=== PATIENT | male | born 1945 | race Caucasian/White ===

== ENCOUNTER 2017-08-18 11:23 | Inpatient (IN) | payer OTHER, MEDICARE ==
[~2017-08-18] VITALS: Ht 177.8 cm; Wt 83.2 kg
[~2017-08-18 11:23] MED LIST: CEPH500 PO; OXYACE5T PO
[2017-08-18 11:39] LABS: BASOPHILS ABSOLUTE AUTO 0.03 K/mm3 (0.00-0.23); BASOPHILS PERCENT AUTO 0 % (0-2); EOSINOPHILS ABSOLUTE AUTO 0.09 K/mm3 (0.00-0.68); EOSINOPHILS PERCENT AUTO 1 % (0-6); Hematocrit 43.1 % (37.0-53.0); Hemoglobin 14.6 g/dL (13.5-17.5); IMMATURE GRAN ABSOLUTE AUTO 0.03 K/mm3 (0.00-0.10); IMMATURE GRAN PERCENT AUTO 0 % (0-1); LYMPHOCYTES ABSOLUTE AUTO 1.57 K/mm3 (0.84-5.20); LYMPHOCYTES PERCENT AUTO 16 % (21-46); MONOCYTES ABSOLUTE AUTO 0.78 K/mm3 (0.16-1.47); MONOCYTES PERCENT AUTO 8 % (4-13); Mean Corpuscular HGB 29.9 pg (26.0-34.0); Mean Corpuscular HGB Conc 33.9 g/dL (31.5-36.5); Mean Corpuscular Volume 88 fL (80-100); Mean Platelet Volume 9.5 fL (9.1-12.4); NEUTROPHILS ABSOLUTE AUTO 7.62 K/mm3 (1.96-9.15); NEUTROPHILS PERCENT AUTO 75 % (41-73); Platelet Count 320 K/mm3 (150-400); RDW Coefficient Variation 12.5 % (11.7-14.2); RDW Standard Deviation 40.6 fL (35.1-46.3); Red Blood Cell Count 4.89 M/mm3 (4.30-5.90); White Blood Cell Count 10.12 K/mm3 (4.00-11.30)
[2017-08-18 11:45] LABS: Calcium, Ionized (POC) 1.15 mmol/L (1.10-1.46); Chloride (POC) 96 mmol/L (98-108); Glucose (ISTAT POC) 168 mg/dL (70-99); Potassium (POC) 3.5 mmol/L (3.5-5.5); Sodium (POC) 142 mmol/L (135-148); Total CO2 (POC) 32 mmol/L (21-32)
[2017-08-18 12:07] LABS: Alanine Aminotransfer (ALT/SGP 24 U/L (12-78); Albumin, Blood 3.2 g/dL (3.4-5.0); Albumin/Globulin Ratio 0.9 (0.8-1.8); Alk Phos 55 U/L (50-136); Anion Gap 5 mmol/L (6-16); Aspartate Aminotrans (AST/SGOT 33 U/L (12-37); Bilirubin, Total 0.5 mg/dL (0.1-1.0); Blood Urea Nitrogen 11 mg/dL (8-24); CO2, Blood 30 mmol/L (21-32); Calcium, Blood 8.8 mg/dL (8.5-10.1); Chloride, Blood 105 mmol/L (98-108); Creatinine, Blood 0.85 mg/dL (0.60-1.20); Globulin, Blood 3.6 g/dL (2.2-4.0); Glomerular Filtration Rate >60 (60-); Glucose, Blood 157 mg/dL (70-99); Potassium, Blood 3.4 mmol/L (3.5-5.5); Sodium, Blood 140 mmol/L (136-145); Total Protein, Blood 6.8 g/dL (6.4-8.2)
[2017-08-18] MEDS ORDERED: ATOR40TA PO (15:31)
[2017-08-18] MEDS ORDERED: CYCL10 PO (15:32)
[2017-08-18] MEDS ORDERED: LIDO700A20 TOP (15:37)
[2017-08-18] MEDS ORDERED: Hair, Skin & N1 EACH PO (15:37)
[2017-08-19 04:25] LABS: BASOPHILS ABSOLUTE AUTO 0.04 K/mm3 (0.00-0.23); BASOPHILS PERCENT AUTO 0 % (0-2); EOSINOPHILS ABSOLUTE AUTO 0.06 K/mm3 (0.00-0.68); EOSINOPHILS PERCENT AUTO 0 % (0-6); Hematocrit 41.6 % (37.0-53.0); Hemoglobin 14.3 g/dL (13.5-17.5); IMMATURE GRAN ABSOLUTE AUTO 0.06 K/mm3 (0.00-0.10); IMMATURE GRAN PERCENT AUTO 0 % (0-1); LYMPHOCYTES ABSOLUTE AUTO 1.51 K/mm3 (0.84-5.20); LYMPHOCYTES PERCENT AUTO 11 % (21-46); MONOCYTES ABSOLUTE AUTO 1.29 K/mm3 (0.16-1.47); MONOCYTES PERCENT AUTO 9 % (4-13); Mean Corpuscular HGB Conc 34.4 g/dL (31.5-36.5); Mean Corpuscular Volume 87 fL (80-100); Mean Platelet Volume 9.8 fL (9.1-12.4); NEUTROPHILS ABSOLUTE AUTO 11.08 K/mm3 (1.96-9.15); NEUTROPHILS PERCENT AUTO 79 % (41-73); Platelet Count 307 K/mm3 (150-400); RDW Coefficient Variation 12.7 % (11.7-14.2); RDW Standard Deviation 40.2 fL (35.1-46.3); Red Blood Cell Count 4.77 M/mm3 (4.30-5.90); White Blood Cell Count 14.04 K/mm3 (4.00-11.30)
[2017-08-19 04:50] LABS: Anion Gap 5 mmol/L (6-16); Blood Urea Nitrogen 10 mg/dL (8-24); Bun/Creatinine Ratio 13.3 (12.0-20.0); CHOL/HDL RATIO 4.5; CO2, Blood 29 mmol/L (21-32); Calcium, Blood 8.4 mg/dL (8.5-10.1); Chloride, Blood 108 mmol/L (98-108); Cholesterol 189 mg/dL (50-200); Creatinine, Blood 0.75 mg/dL (0.60-1.20); Glomerular Filtration Rate >60 (60-); Glucose, Blood 106 mg/dL (70-99); HDL Cholesterol 42 mg/dL (>39); Low Density Lipoprotein Chol 124 mg/dL (0-110); Potassium, Blood 3.5 mmol/L (3.5-5.5); Sodium, Blood 142 mmol/L (136-145); Triglycerides 115 mg/dL (30-160); Very Low Density Lipoprot Chol 23 mg/dL (6-32)
[2017-08-20 09:26] LABS: Anion Gap 8 mmol/L (6-16); Blood Urea Nitrogen 13 mg/dL (8-24); CO2, Blood 28 mmol/L (21-32); Calcium, Blood 8.9 mg/dL (8.5-10.1); Chloride, Blood 107 mmol/L (98-108); Creatinine, Blood 0.82 mg/dL (0.60-1.20); Glomerular Filtration Rate >60 (60-); Glucose, Blood 102 mg/dL (70-99); Magnesium, Blood 2.4 mg/dL (1.6-2.4); Potassium, Blood 3.9 mmol/L (3.5-5.5); Sodium, Blood 143 mmol/L (136-145)
[2017-08-20] MEDS ORDERED: LISI20 PO ×2 (13:13→13:55)
[2017-08-20] MEDS ORDERED: CLOP75 PO (14:15)
[2017-08-20] MEDS ORDERED: METO25 PO (14:16)
== END 2017-08-20 14:50 | disposition home or self-care (01) | DRG 247 ==
LOC: ER 11:23 → ICUW 11:49
PROVIDERS: Emergency Medicine; Internal Medicine; Internal Medicine Interventional Cardiology; Physician Assistant
PROC: 4A023N7 Measurement of Cardiac Sampling and Pressure, Left Heart, Percutaneous Approach (ICD-10-PCS; principal; 2017-08-18)
PROC: 027135Z Dilation of Coronary Artery, Two Arteries with Two Drug-eluting Intraluminal Devices, Percutaneous Approach (ICD-10-PCS; 2017-08-18)
PROC: B211YZZ Fluoroscopy of Multiple Coronary Arteries using Other Contrast (ICD-10-PCS; 2017-08-18)
DX: I21.09 ST elevation (STEMI) myocardial infarction involving other coronary artery of anterior wall (principal); I25.10 Atherosclerotic heart disease of native coronary artery without angina pectoris; I10 Essential (primary) hypertension; E78.5 Hyperlipidemia, unspecified; I49.9 Cardiac arrhythmia, unspecified; R00.1 Bradycardia, unspecified
CPT/HCPCS: 36415; 80047; 80048; 80053; 80061; 83036; 83735; 83880; 84484; 85014; 85025; 85347; 92978; 93005; 93010; 93306; 93454; 99152; 99153; C1725; C1753; C1769; C1874; C1894; C9600; C9606; J0461; J1644; J2060; J2250; J2270; J3010; J3246; J3475; J7030; Q9967

== ENCOUNTER 2024-07-28 15:34 | Inpatient (IN) | payer OTHER, MEDICARE ==
[~2024-07-28] VITALS: Ht 177.8 cm; Wt 82.0 kg
[~2024-07-28 15:34] MED LIST changes: +ATOR40TA PO; +Aspirin EC81 MG PO; +BISA5EC PO; +CARV3.125; +CARV3.125 PO; +CLOP75 PO; +CYCL10 PO; +DOCU100 PO; +Hair, Skin & N1 EACH PO; +Ketamine HCl 100 MG / ML 5ML Vial IV ONE; +LIDO700A20 TOP; +LISI20 PO; +METO25 PO; +Phenylephrine HCl 100 MCG/ML-NS 10MLSYR (1MG/10ML) IV ONE; +Rocuronium Bromide 10 MG/ML 5ML Injection IV ONE; +TAMS.4ER PO
[2024-07-28] MEDS ORDERED: METO50 PO (15:45)
[2024-07-28] MEDS ORDERED: AMIODARONE HCL100 M3 PO (15:45)
[2024-07-28] MEDS ORDERED: ELIQUIS2.5 MG PO (15:46)
[2024-07-28 16:00] LABS: BASOPHILS ABSOLUTE AUTO 0.05 K/mm3 (0.00-0.23); BASOPHILS PERCENT AUTO 1 % (0-2); EOSINOPHILS PERCENT AUTO 1 % (0-6); Hematocrit 44.8 % (37.0-53.0); IMMATURE GRAN ABSOLUTE AUTO 0.04 K/mm3 (0.00-0.10); IMMATURE GRAN PERCENT AUTO 0 % (0-1); LYMPHOCYTES ABSOLUTE AUTO 1.03 K/mm3 (0.84-5.20); LYMPHOCYTES PERCENT AUTO 11 % (21-46); MONOCYTES ABSOLUTE AUTO 1.01 K/mm3 (0.16-1.47); MONOCYTES PERCENT AUTO 10 % (4-13); Mean Corpuscular HGB 30.6 pg (26.0-34.0); Mean Corpuscular HGB Conc 33.5 g/dL (31.5-36.5); Mean Corpuscular Volume 91 fL (80-100); Mean Platelet Volume 9.4 fL (9.1-12.4); NEUTROPHILS PERCENT AUTO 77 % (41-73); Platelet Count 219 K/mm3 (150-400); RDW Coefficient Variation 12.9 % (11.7-14.2); RDW Standard Deviation 43.8 fL (35.1-46.3); White Blood Cell Count 9.73 K/mm3 (4.00-11.30)
[2024-07-28 16:22] LABS: Albumin, Blood 3.6 g/dL (3.4-5.0); Bilirubin, Total 0.9 mg/dL (0.1-1.0); Creatinine, Blood 0.73 mg/dL (0.60-1.20); Globulin, Blood 3.7 g/dL (2.2-4.0); Potassium, Blood 3.8 mmol/L (3.5-5.5); Total Protein, Blood 7.3 g/dL (6.4-8.2)
[2024-07-28] MEDS ORDERED: MethylPREDNISolone Sod Succ 125 MG Vial IV ONE (16:45)
[2024-07-28] MEDS ORDERED: Albuterol 2.5 MG/3 ML VIAL INH SCH (16:45)
[2024-07-28] MEDS ORDERED: Ipratropium/Albuterol SulF 2.5-0.5MG/3 ML Amp INH ONE (16:50)
[2024-07-28] MEDS ORDERED: Metoprolol Tartrate 1 MG/ML 5 ML VIAL IV ONE (16:55)
[2024-07-28 18:18] LABS: Influenza A, PCR NEGATIVE (NEGATIVE); Influenza B, PCR NEGATIVE (NEGATIVE); SARS-Cov-2 (COVID-19) PCR, MMC NEGATIVE (NEGATIVE)
[2024-07-28 19:09] LABS: Resp Syncytial Virus, PCR POSITIVE (NEGATIVE)
[2024-07-28] MEDS ORDERED: Albuterol 2.5 MG/3 ML VIAL INH PRN (20:40)
[2024-07-28] MEDS ORDERED: Ondansetron HCl 2 MG / ML 2ML Vial IV PRN (20:40)
[2024-07-28] MEDS ORDERED: Ipratropium/Albuterol SulF 2.5-0.5MG/3 ML Amp INH SCH (20:45)
[2024-07-28] MEDS ORDERED: Amiodarone HCl 200 MG Tab PO SCH (21:00)
[2024-07-28] MEDS ORDERED: Atorvastatin 40 MG Tab PO SCH (21:00)
[2024-07-28] MEDS ORDERED: Metoprolol Tartrate 50 MG Tab PO SCH (21:00)
[2024-07-28] MEDS ORDERED: Apixaban 5 MG Tab PO SCH (21:00)
[2024-07-28] MEDS ORDERED: Furosemide 10 MG/ML 4ML Vial IV ONE (21:00)
[2024-07-28] MEDS ORDERED: Azithromycin 500 MG in NS 250 ML IV SCH (21:36)
[2024-07-28 22:12] LABS: Base Excess Venous 8.8 mmol/L; PCO2 Venous 76.7 mmHg (38-42); pH Blood Venous 7.28 (7.34-7.37)
[2024-07-28] MEDS ORDERED: LORazepam 2 MG/ML 1ML Injection IV PRN (23:05)
[2024-07-28 23:49] VITALS: BP 107/76
[2024-07-29] VITALS (87 sets, daily range): BP systolic 57–157; BP diastolic 40–108
[2024-07-29] MEDS ORDERED: MethylPREDNISolone Sod Succ 125 MG Vial IV SCH
[2024-07-29 04:37] LABS: Hematocrit 48.5 % (37.0-53.0); Hemoglobin 16.2 g/dL (13.5-17.5); Mean Corpuscular HGB Conc 33.4 g/dL (31.5-36.5); Mean Corpuscular Volume 93 fL (80-100); Mean Platelet Volume 9.3 fL (9.1-12.4); Platelet Count 242 K/mm3 (150-400); RDW Standard Deviation 44.3 fL (35.1-46.3); Red Blood Cell Count 5.22 M/mm3 (4.30-5.90)
[2024-07-29 04:43] LABS: Base Excess Venous 6.9 mmol/L; Bicarbonate Venous 26.8 mmol/L (24.0-30.0); PCO2 Venous 85.3 mmHg (38-42)
[2024-07-29 04:44] LABS: pH Blood Venous 7.22 (7.34-7.37)
--- NOTE | 2024-07-29 05:08 | NUR ---
Pt became hypoxic sats down to 50s pt took off bipap and attempted to urinate, he became lethargic and confused, md called, md came to room, VBG worse not improving from statt of admit, even though pt was on bipap, md transfer to icu for precedex and closer monitoring
[2024-07-29 05:10] LABS: Bun/Creatinine Ratio 17.8 (12.0-20.0); Calcium, Blood 9.2 mg/dL (8.5-10.1); Creatinine, Blood 0.9 mg/dL (0.60-1.20); Magnesium, Blood 2.2 mg/dL (1.6-2.4); Potassium, Blood 4.3 mmol/L (3.5-5.5); Thyroid Stimulating Hormone 0.264 uIU/mL (0.360-4.800)
--- NOTE | 2024-07-29 05:34 | NUR ---
0518: PT ARRIVED TO ICU BY HOSPITAL BED FROM PCU. REPORT WAS RECEIVED PRIOR FROM NOREEN BOOKER. BIPAP IN PLACE 16/8 FIO2 35%. PT CALM AND COOPERATIVE, AOX2-3. PT AWARE TO SELF, PLACE, CURRENT CONDITION, UNAWARE OF DATE. PT LEAVING BIPAP MASK ON AT THIS TIME. VITAL SIGN MONITORING IN PLACE. PT IVSL AT THIS TIME. PT IN AFIB RATE 90-110S, NO ABNORMAL HEART SOUNDS LUNG CRACKLES IN B/L BASE, DIMINISHED IN UPPER LOBES. NO PERIPHERAL EDEMA NOTED. SKIN INTACT. DISTAL CMS INTACT, CAP REFILL <3SEC STRONG PULSE PRESENT IN ALL EXTREMITIES. PT ABLE TO MAEW. NO DIEGO OR PUREWICK IN PLACE AT THIS TIME.
[2024-07-29 07:53] LABS: PO2 Arterial 80.9 mmHg (80-100)
[2024-07-29 07:54] LABS: pH Blood Arterial 7.23 (7.35-7.45)
[2024-07-29 07:55] LABS: PCO2 Arterial 86.9 mmHg (35-45)
--- NOTE | 2024-07-29 08:30 | NUR ---
AM NOTE PT RESTING IN BED ON BIPAP AT 16/8 35%; MASKED CHANGES OUT, SPO2 >90%, RESP RATE 20'S, LS DIMINISHED T/O. ALERT, ORIENTED X4; CALM AND COOPERATIVE WITH CARE AND BIPAP. PT DENIES PAIN, CHEST PAIN/PRESSURE, SOB, NAUSEA, DIZZINESS AND NUMB/TINGLING. TELE AFIB 90-100'S, BP STABLE. ABD SOFT, NONTENDER, +BT. TRACE EDEMA NOTED TO BLE. CAP REFILL WNL. OTHER VSS. CALL LIGHT WITHIN REACH.
[2024-07-29 08:43] LABS: PCO2 Venous 80.4 mmHg (38-42)
[2024-07-29 08:44] LABS: Base Excess Venous 8.9 mmol/L; Bicarbonate Venous 28.9 mmol/L (24.0-30.0)
[2024-07-29 08:45] LABS: pH Blood Venous 7.26 (7.34-7.37)
[2024-07-29] MEDS ORDERED: Furosemide 40 MG Tab PO SCH (09:00)
[2024-07-29] MEDS ORDERED: Multivitamins/Minerals TAB PO SCH (09:00)
[2024-07-29] MEDS ORDERED: Aspirin 81 MG TabEC PO SCH (09:00)
[2024-07-29] MEDS ORDERED: Lisinopril 20 MG Tab PO SCH (09:00)
[2024-07-29] MEDS ORDERED: Tamsulosin HCl 0.4 MG Cap PO SCH (09:00)
--- NOTE | 2024-07-29 10:32 | NUR ---
ATTEMPTED TO TAKE OFF BIPAP FOR MEDICATED THIS AM, ON 6L O2 VIA NC, SPO2 >94%; RESP RATE INCREASED TO 30'S, INCREASE WORK OF BREATHING NOTED. DUE TO RESP STATUS UNABLE TO GIVE ALL OF MEDICATIONS THIS AM, COMPLETED ORAL CARE, AND BACK ON BIPAP. SHORTLY AFTER PT STARTED PULL OFF BIPAP, REPEATEDLY, MEDICATED PER EMAR. CALL LIGHT WITHIN REACH.
--- NOTE | 2024-07-29 18:00 | NUR ---
SHIFT SUMMARY PT ON BIPAP 16/8 35%FIO2 FOR MAJORITY OF SHIFT. NOT TOLERATING BREAKS FROM BIPAP FOR LONG, THIS AFTERNOON, TOOK OFF AND PLACED 6L O2, PT BLECHING AND REPORTING NAUSEA, MEDICATED PER EMAR, RT ATTEMPTED TO DECREASE PRESSURE BUT UNABLE TO PULL ADEQUATE TIDAL VOLUMES. ATTEMPTED SEVERAL TIMES TO TAKE OFF BIPAP, COMPLETED ORAL CARE AND PROVIDED SIPS OF WATER. MINIMLA INTAKE DURING SHIFT, MINIMAL OUT PUT NOTED, BLADDER SCAN AT 216CC; DISCUSSED WITH MD, NEW ORDERS TO D/C LASIX. PT REPOSITIONED SELF FOR MAJORITY OF SHIFT. OTHER VSS. CALL LIGHT WITHIN REACH.
[2024-07-29 21:21] LABS: Base Excess Venous 8.8 mmol/L; Bicarbonate Venous 27.4 mmol/L (24.0-30.0); PCO2 Venous > 105 mmHg (38-42)
[2024-07-29 21:22] LABS: pH Blood Venous 7.16 (7.34-7.37)
[2024-07-29] MEDS ORDERED: dexmedeTOMIDine 100 ML IV SCH (21:35)
--- NOTE | 2024-07-29 21:38 | NUR ---
UPDATE ASSUMED CARE OF PT AT 1900, PT AWAKE, ALERT AND ORIENTED X4, FOLLOWS COMMANDS, ABLE TO MAKE NEEDS KNOWN, AFIB RYHYTHM 100s, BP STABLE MAP>65, BIPAP OFF PER PT REQUEST WITH 13 LPM NC PLACED TO KEEP SPO2>90%, PT GIVEN SCHEDULED MEDS PO AND SWALLOWED WITHOUT DIFFICULTY, DRANK 100 ML LEMON/ASSINIBOINE AND [place] TRI[place]ES SODA, NOTED SOB WITH EXERTION AND TALKING, REQUESTING TO GET OUT OF BED TO URINATE BUT FEELS REALLY WEAK, MALE PUREWICK PLACED AND PT VOIDED 200 ML YELLOW URINE WITHOUT DIFFCULTY, CIARA LUNGS SOUNDS DIMINISHED THOUGHOUT, NO EDEMA NOTED, +RADIAL AND PEDAL PULSES, PT REPOSITIONED FOR COMFORT 2099 PT REMAINS ON HFNC, YELLING OUT FOR HELP AND STATING HE CANT BREATHE AND NEEDS TO VOMIT, MEDICATED WITH ZOFRAN IVP PER EMAR AND HOB RAISED 2119 DR RIVER AT BEDSIDE WITH RT, PT RESTLESS CANT BREATHE OR GET COMFORTABLE, CBG 227, PT DIAPHORETIC, MEDICATED WITH ATIVAN 1 MG, VBG DONE AND PT PLACED BACK ON BIPAP AT THIS TIME 2149 PT SPO2 79-80s WITH NOTED SHALLOW RESPIRATIONS, NOTIFIED CHARGE NURSE AND MD WITH MD ON WAY TO ROOM, BIPAP FIO2 AT 100% RT IN ROOM
[2024-07-29] MEDS ORDERED: Lactated Ringer's 1,000 ML IV ONE ×2 (22:04→22:05)
[2024-07-29 22:51] LABS: Base Excess Venous 1.1 mmol/L; Bicarbonate Venous 23.7 mmol/L (24.0-30.0); PCO2 Venous 64.2 mmHg (38-42); pH Blood Venous 7.25 (7.34-7.37)
[2024-07-29] MEDS ORDERED: propofoL 100 ML IV SCH (23:10)
[2024-07-30] VITALS (68 sets, daily range): BP systolic 58–149; BP diastolic 37–124
--- NOTE | 2024-07-30 01:22 | NUR ---
UPDATE 2204 DR CYR IN ROOM AT BEDSIDE, VBG RESULTS GIVEN TO MD WITH PT RESP SHALLOW, CIARA LUNGS SOUNDS VERY DIMINISHED SPO2 77% -88% ON AIRVO FIO2 100%, NOTED AGONAL BREATHING, DECISION MADE TO INTUBATED PT, SPOSE NOTIFIED BY CHARGE NURSE WITH CONSENT RECEIVED FOR INTUBATION AND CENTRAL LINE 2208 SBP 60s WITH MAP<50, 50 MCG NEOSYNEPHRINE IVP GIVEN , PT MEDICATED WITH 80 MG KETAMINE IVP AT THIS TIME PRIOR TO INTUBATION 2209 50 MG ROCURONIUM IVP GIVEN PRIOR TO INTUBATION 2210 PT INTUBATED BY MD, 8.0 ETT SECURED AT 26 CM WITH COMMERCIAL TUBE GUARDADO AND CONNECTED TO VENTILATOR FIO2 50% AC/PC PEEP5 RATE 22, CXR ORDERED 2212 BP MAP <50, MEDICATED WITH 50 MCG NEOSYNEPHRINE IVP PER MD 2216 BP MAP <60 MEDICATED WITH 50 MCG NEOSYNEPHRINE IVP PER MD WITH NEW ORDER RECIEVED FOR LEVOPHED GTT AND WAITING TO RECEIVE FROM PHARMACY 2229 OG PLACED , PLACEMENT VERIFIED BY AUSC AND ASPIRATION, SECURED WITH TAPE TO ETT AND CONNECTED TO LIS 2230 LEVOPHED GTT STARTED AT THIS TIME PER EMAR 2234 DIEGO CATH PLACED AT THIS TIME WITH STERILE TECHNIQUE, 16 FR 10 CC BULB PATENT AND DRAINING CLEAR YELLOW URINE TO GRAVITY, SECURED WITH STAT LOCK TO RIGHT THIGH 230 RIGHT IJ CENTRAL LINE PLACED BY MD AT THIS TIME 230 CHEST XRAY DONE AT THIS TIME FOR ETT,OG AND CENTRAL LINE PLACEMENT VERIFICATION. DR CYR AT BEDSIDE TO VIEW XRAY WITH OK TO USE CENTRAL LINE GIVEN AND ETT AND OG IN PLACE PER MD 2325 PROPOFOL GTT STARTED AT THIS TIME PER EMAR
[2024-07-30 03:50] LABS: Base Excess Venous 9.1 mmol/L; Bicarbonate Venous 30.8 mmol/L (24.0-30.0); PCO2 Venous 56.3 mmHg (38-42); pH Blood Venous 7.39 (7.34-7.37)
[2024-07-30 03:58] LABS: BASOPHILS ABSOLUTE AUTO 0.02 K/mm3 (0.00-0.23); BASOPHILS PERCENT AUTO 0 % (0-2); EOSINOPHILS PERCENT AUTO 0 % (0-6); Hematocrit 42.8 % (37.0-53.0); Hemoglobin 14.3 g/dL (13.5-17.5); IMMATURE GRAN ABSOLUTE AUTO 0.15 K/mm3 (0.00-0.10); IMMATURE GRAN PERCENT AUTO 1 % (0-1); LYMPHOCYTES ABSOLUTE AUTO 0.77 K/mm3 (0.84-5.20); LYMPHOCYTES PERCENT AUTO 4 % (21-46); MONOCYTES PERCENT AUTO 5 % (4-13); Mean Corpuscular HGB Conc 33.4 g/dL (31.5-36.5); Mean Corpuscular Volume 93 fL (80-100); Mean Platelet Volume 9.5 fL (9.1-12.4); NEUTROPHILS ABSOLUTE AUTO 19.21 K/mm3 (1.96-9.15); NEUTROPHILS PERCENT AUTO 91 % (41-73); Platelet Count 253 K/mm3 (150-400); RDW Coefficient Variation 13.3 % (11.7-14.2); RDW Standard Deviation 45.1 fL (35.1-46.3); Red Blood Cell Count 4.61 M/mm3 (4.30-5.90); White Blood Cell Count 21.15 K/mm3 (4.00-11.30)
[2024-07-30 04:18] LABS: Albumin, Blood 3.4 g/dL (3.4-5.0); Bilirubin, Total 0.6 mg/dL (0.1-1.0); Bun/Creatinine Ratio 30.3 (12.0-20.0); Calcium, Blood 8.9 mg/dL (8.5-10.1); Creatinine, Blood 1.42 mg/dL (0.60-1.20); Globulin, Blood 3.4 g/dL (2.2-4.0); Total Protein, Blood 6.8 g/dL (6.4-8.2)
--- NOTE | 2024-07-30 06:24 | NUR ---
SHIFT SUMMARY PT REMAINS INTUBATED AND SEDATED ON VENT, FIO2 40% WITH SPO2 >90%, RASS -2 ON PROPOFOL GTT ,AFIB RHYTHM 90-130s, BP MAP >65 ON LEVOPHED GTT,OG PATENT TO LOW INTERMITTENT SUCTIONS CIARA WRIST RESTRAINTS ON, PT TURNED AND REPOSITIONED EVERY 2 HOURS, ORAL CARE DONE EVERY 4 HOURS, DIEGO PATENT AND DRAINING TO GRAVITY MINIMAL OUTPUT OF 20-30 ML EVERY 2 HOURS, HOB UP 35 DEGREES, SIDE RAILS UP X2
[2024-07-30] MEDS ORDERED: Bisacodyl 10 MG Supp PR PRN (11:15)
[2024-07-30] MEDS ORDERED: Docusate Sodium Liquid 100 MG UDC PT PRN (11:15)
[2024-07-30] MEDS ORDERED: Ipratropium/Albuterol SulF 2.5-0.5MG/3 ML Amp INH SCH (11:40)
[2024-07-30] MEDS ORDERED: Pantoprazole Sodium 40 MG Injection IV SCH (12:00)
[2024-07-30] MEDS ORDERED: FentaNYL Citrate 50 MCG/ML 2 ML Injection IV PRN (15:00)
[2024-07-30] MEDS ORDERED: Hydrogen Peroxide 1.5 % Solution MT SCH (16:00)
--- NOTE | 2024-07-30 18:34 | NUR ---
PT IS SEDATED AND ABLE TO RELAX BUT TENSES AND IS MORE ORIENTED WITH REPOSITIONING/STIMUL. PT OPENS EYES TO VERBAL STIMULI AND CAN NOD HIS HEAD YES OR NO WHEN AROUSED AND ASKED QUESTIONS. PT IS ON VENTILATOR AND IS TOLERATING WELL. SETTINGS CHANGED AT [address] RIVER. PROPOFOL REMAINS STEADY AT 30MCG/KG. DISCONTINUED LEVOPHED AT 1500, MAP>65. DURING 0800 ASSESSMENT, PT WAS TACHYCARDIC AND WENT INTO AFIB RVR. ADMINISTERED AMIODARONE TAB EARLY WITH CALL TO DR. ROSE. MED ADJUSTMENTS PER DR. ROSE. FURTHER ORDERS FROM DR. RIVER. CONTINUE PLAN OF CARE. PT IS ON VENTILATOR. LUNGS SOUNDS ARE DIMINISHED. CARDIAC: PT
--- NOTE | 2024-07-30 18:59 | NUR ---
SHAZIA'S CARE PERFORMED BY MELISSA STUDENT NURSE AND MYSELF THROUGHOUT THE SHIFT. I AGREE WITH HER ASSESSMENT AND NOTES.
[2024-07-30] MEDS ORDERED: Cetylpyridinium Chloride 1 EA MISC MT SCH (20:00)
[2024-07-30] MEDS ORDERED: Azithromycin 500 MG in NS 250 ML IV ONE (20:00)
[2024-07-30] MEDS ORDERED: MethylPREDNISolone Sod Succ 125 MG Vial IV SCH (21:00)
[2024-07-30] MEDS ORDERED: Amiodarone HCl 200 MG Tab PT SCH (21:00)
[2024-07-30] MEDS ORDERED: Apixaban 5 MG Tab PO SCH (21:00)
[2024-07-31] VITALS (39 sets, daily range): BP systolic 82–132; BP diastolic 49–117
[2024-07-31] MEDS ORDERED: Midazolam HCl 1MG / ML 2ML Vial IV PRN (02:15)
[2024-07-31] MEDS ORDERED: dexmedeTOMIDine 100 ML IV SCH (02:15)
--- NOTE | 2024-07-31 03:02 | NUR ---
PT UPDATE: PT CONTINUES WITH AFIB RVR HR 150-170'S, RESTLESS IN BED. PROPOFOL @ 40 MCG AND PRN PUSHES OF ATIVAN GIVEN WITH MINIMAL EFFECT. DR CYR CALLED REGARDING AFIB RVR AND ORDERS RECIEVED TO START PT ON PRECEDEX GTT AND VERSED PRN. PT STARTED ON PRECEDEX GTT @ 0.2 MCGKG/HR.
[2024-07-31 04:23] LABS: BASOPHILS ABSOLUTE AUTO 0.03 K/mm3 (0.00-0.23); BASOPHILS PERCENT AUTO 0 % (0-2); EOSINOPHILS PERCENT AUTO 0 % (0-6); Hematocrit 39.8 % (37.0-53.0); Hemoglobin 13.5 g/dL (13.5-17.5); IMMATURE GRAN ABSOLUTE AUTO 0.18 K/mm3 (0.00-0.10); IMMATURE GRAN PERCENT AUTO 1 % (0-1); LYMPHOCYTES ABSOLUTE AUTO 0.43 K/mm3 (0.84-5.20); LYMPHOCYTES PERCENT AUTO 2 % (21-46); MONOCYTES ABSOLUTE AUTO 0.88 K/mm3 (0.16-1.47); MONOCYTES PERCENT AUTO 3 % (4-13); Mean Corpuscular HGB 30.8 pg (26.0-34.0); Mean Corpuscular HGB Conc 33.9 g/dL (31.5-36.5); Mean Corpuscular Volume 91 fL (80-100); Mean Platelet Volume 9.7 fL (9.1-12.4); NEUTROPHILS ABSOLUTE AUTO 25.77 K/mm3 (1.96-9.15); NEUTROPHILS PERCENT AUTO 94 % (41-73); Platelet Count 231 K/mm3 (150-400); RDW Coefficient Variation 13.5 % (11.7-14.2); RDW Standard Deviation 45.2 fL (35.1-46.3); Red Blood Cell Count 4.39 M/mm3 (4.30-5.90); White Blood Cell Count 27.29 K/mm3 (4.00-11.30)
[2024-07-31 04:45] LABS: Bun/Creatinine Ratio 36.1 (12.0-20.0); Calcium, Blood 8.8 mg/dL (8.5-10.1); Creatinine, Blood 2.02 mg/dL (0.60-1.20); Magnesium, Blood 2.7 mg/dL (1.6-2.4); Phosphorus, Blood 2.8 mg/dL (2.5-4.9); Potassium, Blood 3.9 mmol/L (3.5-5.5)
--- NOTE | 2024-07-31 06:42 | NUR ---
SHIFT SUMMARY: NO ACUTE CHANGES SINCE PREVIOUS NOTE; VSS THROUGHOUT THE SHIFT. PT REMAINS INTUBATED AND SEDATED WITH VENT SETTINGS AC/PC: PI 20, PEEP 5, FIO2 30% AND RATE 18. PT SEDATED WITH PROPOFOL GTT @ 3O MCG/KG/HR AND PRECEDEX @ 0.2 MCG/KG/HR. ON LOW DOSE OF LEVO @ 2 MCG/MIN. PT AROUSES TO VERBAL STIMULI, WILL OPEN EYES AND SQUEEZE HANDS ON COMMAND. PT IN AFIB ON MONITOR WITH HR 110-140'S; AT ONE POINT DURING THE NIGHT PT TACHY UP TO 170'S, PROVIDER NOTIFIED AND ORDERS RECIEVED. OGT PATENT AND VHP @ 50 MLS/HR WITH A GOAL OF 60 MLS/HR. PT HAS DIEGO, APPROX. 500 MLS URINE OUTPUT THIS SHIFT. CBG ARE TRENDING UP, WILL NOTIFY PROVIDER. CHG BED BATH COMPLETE THIS SHIFT. PT'S AND DAUGHTER IN TO SEE PT AT START OF SHIFT, AND UPDATED ON PLAN OF CARE. WILL REPORT OFF TO ONCOMING RN.
[2024-07-31] MEDS ORDERED: Phenylephrine HCl in 0.9% NaCl 250 ML IV SCH (09:50)
[2024-07-31] MEDS ORDERED: Metoprolol Tartrate 25 MG Tab PO SCH (12:00)
--- NOTE | 2024-07-31 13:51 | NUR ---
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 SHE ASSESSED AND CONFIRMED THAT THE AREA IS INFECTED. SEE HER NOTES FOR FURTHER INFORMATION.
[2024-07-31] MEDS ORDERED: Amoxicillin 250 MG/5 ML UDC 5ML BTL PT SCH (14:27)
[2024-07-31 17:40] LABS: Source, Urine Foley catheter
[2024-07-31 17:55] LABS: Appearance, Urine Clear (Clear); Bilirubin, Urine Neg (Neg); Blood, Urine 4+ (Neg); Glucose Qualitative, Urine 4+ (Neg); Ketones, Urine Neg (Neg); Leukocyte Esterase, Urine Neg (Neg); Nitrite, Urine Neg (Neg); Protein, Urine 2+ (Neg); Specific Gravity, Urine 1.015 (1.003-1.022); Urobilinogen, Urine NORM (Normal)
[2024-07-31 18:02] LABS: Color, Urine Pale Yellow (P-Yellow); Hyaline Casts 0-2 /lpf (0-2)
[2024-07-31 18:03] LABS: Amorphous Light (0-Heavy); Bacteria Not Seen /hpf; Calcium Oxalate Crystals Rare /hpf; Squamous Epithelial Cells Not Seen /hpf (Few); White Blood Cells, Urine 0-2 /hpf (0-5)
--- NOTE | 2024-07-31 18:24 | NUR ---
NEURO: PT HAS BEEN SEDATED FOR THE DURATION OF SHIFT. PT HAS BEEN SEDATED WITH PROPOFOL AND PRECEDEX. PROPOFOL WAS 25 AND PRECEDEX AT 0.2 AT THE BEGINNING OF SHIFT, PROPOFOL WAS DECREASED TO TO 20 AND PRECEDEX INCREASED TO 0.4 AT 1200. PT IS SEDATED BUT AROUSABLE WITH REPOSITIONING AND VERBAL AND PAINFUL STIMULI. CAN NOD HIS HEAD YES OR NO AND OBEYS COMMANDS. CARDIAC: AT ONSET OF SHIFT PT WAS RECEIVING LEVOPHED @ 2. MAP >90, LEVOPHED WAS DC'D. HR SINUS TACH, 80-140S FOR MAJORITY OF SHIFT. DR. VALENCIA RX 12.5MG METOPROLOL PO Q6. RESP: PT VENTILATED AND SEDATED, TOLERATING VENTILATOR WELL, OCCASIONAL COUGH. MINIMAL SPUTUM. GI/: PT DID NOT HAVE A BM, BOWEL SOUNDS ARE ACTIVE. URINE OUTPUT IMPROVED GREATLY, OUTPUT OF 975. PT BLOOD SUGAR CONTINUES TO INCREASE, 1600 BLOOD GLUCOSE WAS 267. ADDRESSED AT ROUNDING, BUT NO INSULIN WAS RX AT THIS TIME. DR REYNA WENT TO SEE PT PER DR ROSE CONSULT. INTEG: PT WAS DIAPHORETIC AND WARM THIS MORNING BUT COOLED DOWN. DURING 1200 ORAL CARE, IDENTIFIED AN AREA OF CONCERN ON THE RIGHT UPPER HARD PALATE. NOTIFIED DERRICK [facility], SHE ASSESSED AND CONFIRMED INFECTION. DR. LAWSON RX AMOXICILLIN 500MG TID PT. PT TOLERATED ALL INTERVENTIONS WELL, PLAN OF CARE CONTINUES.
[2024-08-01] VITALS (36 sets, daily range): BP systolic 94–152; BP diastolic 54–126
[2024-08-01 03:16] LABS: Base Excess Venous 12.1 mmol/L; Bicarbonate Venous 33.6 mmol/L (24.0-30.0); PCO2 Venous 52.9 mmHg (38-42); pH Blood Venous 7.44 (7.34-7.37)
[2024-08-01 03:20] LABS: BASOPHILS ABSOLUTE AUTO 0.04 K/mm3 (0.00-0.23); BASOPHILS PERCENT AUTO 0 % (0-2); EOSINOPHILS PERCENT AUTO 0 % (0-6); Hemoglobin 14.8 g/dL (13.5-17.5); IMMATURE GRAN ABSOLUTE AUTO 0.24 K/mm3 (0.00-0.10); IMMATURE GRAN PERCENT AUTO 1 % (0-1); LYMPHOCYTES ABSOLUTE AUTO 0.49 K/mm3 (0.84-5.20); LYMPHOCYTES PERCENT AUTO 2 % (21-46); MONOCYTES ABSOLUTE AUTO 1.26 K/mm3 (0.16-1.47); MONOCYTES PERCENT AUTO 5 % (4-13); Mean Corpuscular HGB Conc 34.4 g/dL (31.5-36.5); Mean Corpuscular Volume 90 fL (80-100); Mean Platelet Volume 9.7 fL (9.1-12.4); NEUTROPHILS ABSOLUTE AUTO 22.35 K/mm3 (1.96-9.15); NEUTROPHILS PERCENT AUTO 92 % (41-73); Platelet Count 199 K/mm3 (150-400); RDW Coefficient Variation 13.2 % (11.7-14.2); RDW Standard Deviation 44.1 fL (35.1-46.3); Red Blood Cell Count 4.78 M/mm3 (4.30-5.90); White Blood Cell Count 24.38 K/mm3 (4.00-11.30)
[2024-08-01 03:39] LABS: Bun/Creatinine Ratio 45.5 (12.0-20.0); Calcium, Blood 8.7 mg/dL (8.5-10.1); Creatinine, Blood 1.32 mg/dL (0.60-1.20); Magnesium, Blood 2.9 mg/dL (1.6-2.4); Phosphorus, Blood 3.1 mg/dL (2.5-4.9); Potassium, Blood 4.4 mmol/L (3.5-5.5)
--- NOTE | 2024-08-01 07:36 | NUR ---
PT LYING IN BED VENTILATED AN SEDATED, RASS OF 0 TO +1. PT RASS OF -2 MOST OF NIGHT. SINCE 0500 PT HAS BECOME MORE ACTIVE/RESTLESS/AGITATED, BUT VITALS HAVE REMAINED STABLE, THOUGH AN INCREASE IN RR AND OCCASIONAL INCREASE IN TIDAL VOL HAS ACCOMPANIED THE LEVEL OF SEDATION. PT ON 25 OF PROPOFOL AND 0.4 OF PRECEDEX. PT WAS GIVEN ONE DOSE OF FENTANYL DURING MIDDLE OF SHIFT. HR REMAINED ELEVATED DURING SHIFT BUT DIDN'T CREEP ABOVE 120'S. BP STABLE ALL SHIFT. ACPC VENT SETTINGS OF 18/MIN, PI 20, 5.0 PEEP AND 30%FI02 PRODUCED >95% SATURATIONS. ONE CUFF LEAK EVENT DURING MIDDLE OF SHIFT. NO BM. 1 LITER OF YELLOW URINE OUTPUT THROUGH DIEGO. BEDSIDE REPORT GIVEN TO DAY RN AND DAY RN STUDENT.
[2024-08-01] MEDS ORDERED: Piperacillin/Tazobactam Sod 4.5 GM in NS 100 ML IV SCH (09:13)
--- NOTE | 2024-08-01 10:19 | NUR ---
PT UNDERWENT A SEDATION VACATION FROM . PT TOLERATED WELL, ABLE TO MOVE ALL EXTREMITIES ON DEMAND, NOD HIS HEAD YES OR NO, AND OPEN HIS EYES AND TRACK. DAUGHTER BY BEDSIDE. DR. VALENCIA AT BEDSIDE. CHANGED VENT SETTINGS TO SPONTANEOUS FOR APPROX 5 MINS. TOLERATED FAIR, RR INCREASED TO 40S. RETURNED TO A/C VENT SETTINGS. WILL CONTINUE TO MONITOR.
--- NOTE | 2024-08-01 13:08 | NUR ---
PALLIATIVE CARE NOTE: PT IS INTUBATED AND SEDATED. UNABLE TO HAVE MEANINGFUL CONVERSATION WITH PATIENT. CALLED [facility] AND SPOKE TO DIRECTOR. THEY WERE ABLE TO FAX HIS ADVANCE DIRECTIVE TO HOSPITAL. PT DOES NOT HAVE A POLST ON FILE. ADVANCE DIRECTIVE RECEIVED AND UPDATED PRIMARY RN AND DR. ROSE OF PT WISHES. CUCO IS NAMES PRIMARY DECISION MAKER. CALL PLACED TO CUCO AND SPOKE TO HER ON THE PHONE. CUCO INDICATED IN OUR CONVERSATION HER DID NOT WANT TO BE ON A VENTILATOR, HE WOULD NOT WANT MEDICATIONS TO EITHER TO TREAT HIM IF HE WAS TO GET TO THE THAT POINT OF NEEDING TO BE ON A VENTILATOR. DISCUSSED CODE STATUS WITH CUCO SINCE PT IS A FULL CODE. EDUCATED CUCO ON FULL CODE VS DNR STATUS. CUCO STATED SHE WANTS KATHERIN TO BE A DNR BECAUSE THAT IS WHAT HE WOULD WANT. INFORMED CUCO MORE DISCUSSION IS NEEDED WITH PROVIDER ABOUT PT ON THE VENTILATOR. CUCO AGREEABLE TO WAIT FOR MORE INFORMATION. SPOKE TO DR. ROSE ABOUT ABOVE CONVERSATION WITH . HE AGREES TO CHANGE CODE STATUS TO DNR. DR. ROSE INDICATED PT MAY HAVE GOOD OUTCOME. SPOKE TO PRIMARY RN AND UPDATED HER WITH ABOVE CONVERSATION. CODE STATUS CHANGED TO DNR.
[2024-08-01] MEDS ORDERED: Insulin Human Lispro 100 Units/ML 3ML Syringe SC SCH (18:00)
[2024-08-01] MEDS ORDERED: Insulin Regular 100 UNIT/ML 10ML Vial SC SCH (18:30)
--- NOTE | 2024-08-01 18:30 | NUR ---
NEURO: PT UNDERWENT SEDATION VACATION FROM 08 TO 08. PATIENT WAS ABLE TO FOLLOW COMMANDS, MOVE ALL EXTREMITIES, AND NOD HIS HEAD YES OR NO. DR. VALENCIA AND DAUGHTER AT BEDSIDE. DC'D PRECEDEX 1040, PROPOFOL FOR SEDATION, INCREASED FROM 25MCG/KG/HR TO 35MCG/KG/HR BY END OF SHIFT. PT IS LIGHTLY SEDATED AND SPONTANEOUSLY OPENS HIS EYES AND MAEW. RESP: DR. VALENCIA PERFORMED A SPONTANEOUS BREATHING TRIAL AT BEDSIDE AT TIME OF SEDATION VACTION, PT TACHYPNEIC AND SHALLOW BREATHS. COMPLAINED OF DYSPNEA AND SOB. VENT SETTINGS REVERTED TO SETTINGS PER RT NOTES. CARDIOVASCULAR: PT 90S-130S FOR MAJORITY OF DAY. WARM THORAX AND COOL EXTREMITIES. MAP <65 WHEN PROPOFOL WAS AT 40MCG/KG/HR, REDUCED PROPOFOL TO 35MCG/KG/HR AND MAP HAS CONTINUED TO BE >65. GI/: URINE OUTPUT >1000MLS FOR DURATION OF SHIFT. NO BM, ABDOMEN DISTENDED AND TENDER, PT NODS WHEN ASKED IF IN PAIN. DOCUSATE SODIUM ADMINISTERED 1530. INSULIN HUMILIN REGULAR ORDERED, FIRST DOSE ADMINISTERED 1830, GLUCOSE AT 297. INTEG: FLUCTUATES FROM BEING COOL TO FLUSHED AND DIAPHORETIC. REMOVED LEFT AC PERIPHERAL IV. PALLIATVE CARE CONTACTED, CODE STATUS CHANGED TO DNR.
--- NOTE | 2024-08-01 18:59 | NUR ---
WORKED ALONGSIDE STUDENT NURSE MELISSA THROUGHOUT THE SHIFT.
[2024-08-02] VITALS (32 sets, daily range): BP systolic 115–153; BP diastolic 71–117
[2024-08-02 03:54] LABS: BASOPHILS ABSOLUTE AUTO 0.03 K/mm3 (0.00-0.23); BASOPHILS PERCENT AUTO 0 % (0-2); EOSINOPHILS PERCENT AUTO 0 % (0-6); Hematocrit 42.8 % (37.0-53.0); Hemoglobin 14.3 g/dL (13.5-17.5); IMMATURE GRAN ABSOLUTE AUTO 0.28 K/mm3 (0.00-0.10); IMMATURE GRAN PERCENT AUTO 1 % (0-1); LYMPHOCYTES ABSOLUTE AUTO 0.43 K/mm3 (0.84-5.20); LYMPHOCYTES PERCENT AUTO 2 % (21-46); MONOCYTES ABSOLUTE AUTO 0.87 K/mm3 (0.16-1.47); MONOCYTES PERCENT AUTO 4 % (4-13); Mean Corpuscular HGB 30.8 pg (26.0-34.0); Mean Corpuscular HGB Conc 33.4 g/dL (31.5-36.5); Mean Corpuscular Volume 92 fL (80-100); Mean Platelet Volume 9.9 fL (9.1-12.4); NEUTROPHILS ABSOLUTE AUTO 18.83 K/mm3 (1.96-9.15); NEUTROPHILS PERCENT AUTO 92 % (41-73); Platelet Count 214 K/mm3 (150-400); RDW Coefficient Variation 13.5 % (11.7-14.2); RDW Standard Deviation 46.3 fL (35.1-46.3); Red Blood Cell Count 4.65 M/mm3 (4.30-5.90); White Blood Cell Count 20.44 K/mm3 (4.00-11.30)
[2024-08-02 04:09] LABS: Magnesium, Blood 2.9 mg/dL (1.6-2.4)
[2024-08-02 04:10] LABS: Bun/Creatinine Ratio 47.2 (12.0-20.0); Calcium, Blood 8.5 mg/dL (8.5-10.1); Creatinine, Blood 1.25 mg/dL (0.60-1.20); Phosphorus, Blood 2.4 mg/dL (2.5-4.9); Potassium, Blood 4.3 mmol/L (3.5-5.5)
--- NOTE | 2024-08-02 05:22 | NUR ---
SHIFT SUMMARY: NO SIGNIFICANT OVERNIGHT EVENTS. PT HAD FAMILY HERE AT THE START OF SHIFT VISITING WITH HIM. THEY DID NOT DISCUSS WITH ME AND DESIRE TO CHANGE CARE PLAN TO PALLIATIVE OR COMFORT CARE. PT REMAINED IN AN IRREGULAR RHYTHM, RATE SEEMED CONTROLLED TO 90S-130S. BP HAS BEEN STABLE. PT HAS TOLERATED THE VENT WITHOUT ISSUE.
[2024-08-02] MEDS ORDERED: Lactobacil 2-S.Thermo-Bifido 1 1 Cap PO SCH (09:00)
[2024-08-02] MEDS ORDERED: Metoprolol Tartrate 25 MG Tab PT ONE (10:25)
--- NOTE | 2024-08-02 13:31 | NUR ---
PALLIATIVE CARE VISIT: MADE BRIEF VISIT WITH PT AND FAMILY IN ROOM. PT IS NOW OFF VENTILATOR AND ON THE BIPAP. PT ABLE TO USE HAND GESTURES TO COMMUNICATE AND IS FOLLOWING COMMANDS. PT GIVES A THUMBS UP WHEN ASKED HOW HE IS DOING. FAMILY ARE VISITING. THEY DENY QUESTIONS OR CONCERNS AT THIS TIME. ADVISED FAMILY TO KEEP DISCUSSION TO AMINIMUM WHILE HE IS RECOVERING AND STILL ON THE BIPAP. DAUGHTER V/U.
[2024-08-02] MEDS ORDERED: Metoprolol Tartrate 25 MG Tab PO SCH (18:00)
--- NOTE | 2024-08-02 18:02 | NUR ---
PT SUMMARY PT WAS EXTUBATED AT 1035 TO BIPAP AT 12/8, PT WAS THEN PUT ON 3L NC AROUND 1200, PT TOLERATED WELL THEN DESATTED TO 86%, BIPAP WAS PLACED BACK ON AND PT O2 SAT WENT BACK UP. PT THEN WAS GIVEN ANOTHER BREAK AT 1400 ON 5L NC AND PT HAS BEEN TOLERATING WELL SINCE THEN, PT WAS ABLE TO TAKE SMALL SIPS OF WATER AND PT TOLERATED PILLS WELL. PT IS MORE ALERT AND ORIENTED X3, STILL CONFUSED ABOUT THE DATE. NO OTHER INTERVENTIONS AT THIS TIME, WAS AT BEDSIDE UPON EXTUBATION. PT HEART RATE STILL 115-160s, HAS READJUSTED LOPRESSOR DOSE, OTHERWISE NO NEW ORDERS ADDED. PLAN OF CARE CONTINUED.
--- NOTE | 2024-08-02 21:04 | NUR ---
ASSUME CARE: BEDSIDE REPORT RECIEVED FROM LENGAGISEL RN. PT A/Ox4 AND PLEASANT WITH CARE. PT VERY TALKATIVE AND ABLE TO MAKE NEEDS KNOWN. SBP 130s, MAP>65. MONITOR SHOWS AFIB, RATE 100s-130s. SPO2>95% ON 5L NC. PT HAS PRODUCTIVE COUGH WITH THICK YELLOW SPUTUM. PT ABLE TO TOLERATE SIPS OF WATER AND TAKE MEDICATION ORALLY WITHOUT ISSUE. SKIN INTACT. DIEGO PATENT DRAINING TO GRAVITY. WILL UPDATE NEEDED.
[2024-08-03] VITALS (27 sets, daily range): BP systolic 111–155; BP diastolic 74–117
[2024-08-03 03:42] LABS: BASOPHILS ABSOLUTE AUTO 0.09 K/mm3 (0.00-0.23); BASOPHILS PERCENT AUTO 0 % (0-2); EOSINOPHILS PERCENT AUTO 0 % (0-6); Hemoglobin 14.8 g/dL (13.5-17.5); IMMATURE GRAN PERCENT AUTO 2 % (0-1); LYMPHOCYTES ABSOLUTE AUTO 0.54 K/mm3 (0.84-5.20); LYMPHOCYTES PERCENT AUTO 3 % (21-46); MONOCYTES ABSOLUTE AUTO 1.37 K/mm3 (0.16-1.47); MONOCYTES PERCENT AUTO 7 % (4-13); Mean Corpuscular HGB 30.5 pg (26.0-34.0); Mean Corpuscular HGB Conc 32.9 g/dL (31.5-36.5); Mean Corpuscular Volume 93 fL (80-100); Mean Platelet Volume 9.7 fL (9.1-12.4); NEUTROPHILS ABSOLUTE AUTO 18.19 K/mm3 (1.96-9.15); NEUTROPHILS PERCENT AUTO 88 % (41-73); Platelet Count 235 K/mm3 (150-400); RDW Coefficient Variation 13.7 % (11.7-14.2); RDW Standard Deviation 47.1 fL (35.1-46.3); Red Blood Cell Count 4.85 M/mm3 (4.30-5.90); White Blood Cell Count 20.59 K/mm3 (4.00-11.30)
[2024-08-03 04:05] LABS: Bun/Creatinine Ratio 46.6 (12.0-20.0); Calcium, Blood 8.8 mg/dL (8.5-10.1); Creatinine, Blood 1.18 mg/dL (0.60-1.20); Potassium, Blood 4.5 mmol/L (3.5-5.5)
--- NOTE | 2024-08-03 05:14 | NUR ---
SHIFT SUMMARY: PT A/Ox4 AND PLEASANT WITH CARE T/O THE NIGHT. SBP 140s, MAP>65. MONITOR SHOWS AFIB, RATE 100-130s. SPO2>95% ON BIPAP, PT ABLE TO TOLERATE 2L NC FOR REQUESTED SIPS OF WATER AND MEDICATION ADMINISTRATION. PT HAS SHALLOW WET COUGH W/ THICK PEARCE SECRETIONS. DIEGO PATENT DRAINING TO GRAVITY. WILL REPORT TO ONCOMING RN.
[2024-08-03] MEDS ORDERED: Ipratropium/Albuterol SulF 2.5-0.5MG/3 ML Amp ONE (07:35)
--- NOTE | 2024-08-03 07:37 | NUR ---
THIS RN ASSUMED CARE OF PT AT 0700. PT IS ALERT AND ORIENTED X3, LITTLE CONFUSED ABOUT THE PLACE BUT VERY REDIRECTABLE, MAKES NEEDS KNOWNS. PT HEART RATE IN A-FIB IN THE 100-120s, BLOOD PRESSURE STABLE AT 150/116 MAP OF 124, PT DENIES CHEST PAIN UPON ASSESSMENT. PT IS ON BIPAP, SATTING >95%, SOUNDS COURSE/DIMINISHED, PT IS STILL COMPLAINING OF SHORTNESS OF BREATH RR IN THE 20s. PT HAS A CENTRAL LINE CLEAN/DRY/INTACT, PT HAS DIEGO CATHETER DRAINING TO GRAVITY. NO OTHER INTERVENTIONS AT THIS TIME. PLAN OF CARE CONTINUED.
[2024-08-03] MEDS ORDERED: Ipratropium/Albuterol SulF 2.5-0.5MG/3 ML Amp INH SCH ×2 (08:55→11:40)
[2024-08-03] MEDS ORDERED: MethylPREDNISolone Sod Succ 40 MG VIAL IV SCH ×2 (09:00→21:00)
[2024-08-03] MEDS ORDERED: CefTRIAXone Sodium 2,000 MG in NS 100 ML IV SCH (12:56)
--- NOTE | 2024-08-03 18:17 | NUR ---
PT SUMMARY PT IS AWAKE AND ALERT X3, STILL CONFUSED AT TIMES, BUT REDIRECTABLE AND MAKES NEEDS KNOWN. PT HEART RATE IN THE 100-120s, LOPRESSOR DOSE WAS INCREASED TODAY PER . PT WAS ABLE TO STAND UP WITH PT TODAY AND TAKE A COUPLE STEPS, PT DID GET TIRED OUT AND OXYGEN SATURATION WENT DOWN, PT WAS PUT BACK ON BIPAP AND RECOVERED WELL AFTERWARDS. PT HAS BEEN EATING, A SPEECH EVALUATION HAS BEEN ORDERED. NO OTHER INTERVENTIONS AT THIS TIME, NO ACUTE EVENTS TO REPORT THROUGHOUT THE DAY. PLAN OF CARE CONTINUED.
[2024-08-03] MEDS ORDERED: Metoprolol Tartrate 50 MG Tab PO SCH (21:00)
--- NOTE | 2024-08-03 21:10 | NUR ---
ASSUME CARE: BEDSIDE REPORT RECIEVED FROM DAYSINFT RN. PT INTUBATED AND SEDATED, RASS -2, PROPOFOL GTT AT 30 MCG/KG/MIN, FENTANYL AT 50 MCG/HR. VSS, SPO2>90% ON VENT, SETTINGS VC 12/500/10/60%. CHEST PERCUSSION AT START OF SHIFT. OGT PATENT INFUSING TF. TEMP DIEGO PATENT DRAINING TO GRAVITY. WILL UPDATE NEEDED.
--- NOTE | 2024-08-03 21:33 | NUR ---
ASSUME CARE: PT A/Ox4 AND PLEASANT W/CARE. VSS, MONITOR SHOWS AFIB, RATE 100s-130s. SPO2>95% ON 2L NC. PT REQUEST TO WEAR BIPAP W/SLEEP DUE TO SOB. JOHNATHON PATENT DRAINING TO GRAVITY. CALL LIGHT IN REACH AND BED ALARM ON. WILL UPDATE NEEDED.
[2024-08-04] VITALS (27 sets, daily range): BP systolic 97–155; BP diastolic 56–132
[2024-08-04 03:44] LABS: BASOPHILS ABSOLUTE AUTO 0.07 K/mm3 (0.00-0.23); BASOPHILS PERCENT AUTO 0 % (0-2); EOSINOPHILS PERCENT AUTO 0 % (0-6); Hematocrit 46.4 % (37.0-53.0); Hemoglobin 14.9 g/dL (13.5-17.5); IMMATURE GRAN ABSOLUTE AUTO 0.39 K/mm3 (0.00-0.10); IMMATURE GRAN PERCENT AUTO 2 % (0-1); LYMPHOCYTES ABSOLUTE AUTO 0.56 K/mm3 (0.84-5.20); LYMPHOCYTES PERCENT AUTO 3 % (21-46); MONOCYTES ABSOLUTE AUTO 1.45 K/mm3 (0.16-1.47); MONOCYTES PERCENT AUTO 7 % (4-13); Mean Corpuscular HGB 30.2 pg (26.0-34.0); Mean Corpuscular HGB Conc 32.1 g/dL (31.5-36.5); Mean Corpuscular Volume 94 fL (80-100); NEUTROPHILS ABSOLUTE AUTO 17.58 K/mm3 (1.96-9.15); NEUTROPHILS PERCENT AUTO 88 % (41-73); Platelet Count 234 K/mm3 (150-400); RDW Coefficient Variation 13.4 % (11.7-14.2); RDW Standard Deviation 46.5 fL (35.1-46.3); Red Blood Cell Count 4.93 M/mm3 (4.30-5.90); White Blood Cell Count 20.05 K/mm3 (4.00-11.30)
[2024-08-04 04:16] LABS: Albumin, Blood 2.7 g/dL (3.4-5.0); Albumin/Globulin Ratio 0.7 (0.8-1.8); Bilirubin, Total 0.7 mg/dL (0.1-1.0); Bun/Creatinine Ratio 51.3 (12.0-20.0); Calcium, Blood 8.9 mg/dL (8.5-10.1); Creatinine, Blood 1.19 mg/dL (0.60-1.20); Globulin, Blood 3.7 g/dL (2.2-4.0); Phosphorus, Blood 4.2 mg/dL (2.5-4.9); Potassium, Blood 4.7 mmol/L (3.5-5.5); Total Protein, Blood 6.4 g/dL (6.4-8.2)
--- NOTE | 2024-08-04 05:27 | NUR ---
SHIFT SUMMARY: PT A/Ox4 T/O SHIFT. PT FREQUENTLY COMPLAINS OF DISCOMFORT IN BED AND WAS NOT ABLE TO GET MUCH SLEEP. VSS. SPO2>95% ON 3L NC, ABLE TO TOLERATE BIPAP T/O THE NIGHT WITH SHORT BREAKS. PT ABLE TO AMBULATE W/ 2P ASSIST TO BEDSIDE COMMODE FOR BM THEN TO CHAIR. JOHNATHON PATENT DRAINING TO GRAVITY. RIKalyani DC'D, DRESSING C/D/I. CALL LIGHT IN REACH. WILL REPORT TO ONCOMING RN.
[2024-08-04] MEDS ORDERED: Pantoprazole Sodium 20 MG Tab PO SCH (06:00)
--- NOTE | 2024-08-04 18:37 | NUR ---
PT A/O X4 AND ABLE TO VERBALIZE NEEDS. PT ON NC 4 LITERS AT BEGINNING OF SHIFT, REDUCED TO 3 LITERS AT 1700. PT COMPLAINS OF GENERALIZED WEAKNESS AND DYSPNEA. PT CHRONIC COUGH AND BASELINE PER PATIENT. SWALLOW EVAL WAS PERFORMED AND PT WAS CLEARED FOR REGULAR DIET-EASY TO CHEW. PT TACHYCARDIC AND HTN FOR MAJORITY OF SHIFT. HR 100-130S AND MAP >65. DR. ROSE RE-ESTABLISHED HOME MEDS: FLOMAX, LIPITOR, AND LISINPROL. PT HAD A BM, AMBULATES TO BEDSIDE COMMODE. D/C DIEGO AT 1200, PT TOLERATED WELL AND HAS VOIDED APPROX 200MLS SINCE. PT AGREEABLE AND COOPERATIVE. CONTINUING PLAN OF CARE.
[2024-08-04] MEDS ORDERED: Tamsulosin HCl 0.4 MG Cap PO SCH (21:00)
[2024-08-04] MEDS ORDERED: Atorvastatin 40 MG Tab PO SCH (21:00)
[2024-08-05] VITALS (11 sets, daily range): BP systolic 96–144; BP diastolic 62–99
--- NOTE | 2024-08-05 02:32 | NUR ---
UPDATE ASSUMED CARE OF PT AT 1900, PT AWAKE AND ALERT, ORIENTED X4, FOLLOWS COMMANDS, ABLE TO MAKE NEEDS KNOWN, CALL LIGHT IN REACH, AFIB RHYTHM NOTED 80-110s, BP STABLE, AFEBRILE, O2 AT 4 LPM NC, SCHEDULED MEDS GIVEN PO WITH APPLESAUCE WHOLE, SWALLOWED WITHOUT DIFFICULTY, CONTINENT OF URINE, VOIDS CLEAR YELLOW URINE IN URINAL, PT C/O UNCOMFORTABLE IN BED AND FEELING A LUMP AT HIS BACK NO MATTER WHICH WAY REPOSITIONED, PT ASSISTED UP WITH WALKER X1 STANDBY TO CHAIR BESIDE BED, WAFFLE MATTRESS OVERLAY PLACED ON BED WITH CLEAN SHEETS, PT ASSISTED WITH WALKER AND X1 STANDBY BACK TO BED, TOLERATED WELL, PT VOICES RELIEF AND MORE COMFORTABLE WITH OVERLAY IN PLACE.0010 PT TEARFUL AND ANXIOUS WORRIED ABOUT AT HOME SICK AND MISSING HOME AND , MEDICATED WITH ATIVAN IVP PER EMAR PER PT REQUEST. ATIVAN EFFECTIVE. PT RESTING IN BED WITH EYES CLOSED AT THIS TIME. NO DISTRESS NOTED SIDE RAILS UP X2 CALL LIGHT IN REACH
[2024-08-05 03:29] LABS: Base Excess Venous 17.8 mmol/L; Bicarbonate Venous 37.4 mmol/L (24.0-30.0); PCO2 Venous 73.3 mmHg (38-42); pH Blood Venous 7.38 (7.34-7.37)
[2024-08-05 03:48] LABS: BASOPHILS ABSOLUTE AUTO 0.06 K/mm3 (0.00-0.23); BASOPHILS PERCENT AUTO 0 % (0-2); EOSINOPHILS PERCENT AUTO 0 % (0-6); Hematocrit 43.2 % (37.0-53.0); Hemoglobin 13.8 g/dL (13.5-17.5); IMMATURE GRAN ABSOLUTE AUTO 0.33 K/mm3 (0.00-0.10); IMMATURE GRAN PERCENT AUTO 2 % (0-1); LYMPHOCYTES ABSOLUTE AUTO 0.57 K/mm3 (0.84-5.20); LYMPHOCYTES PERCENT AUTO 3 % (21-46); MONOCYTES ABSOLUTE AUTO 1.03 K/mm3 (0.16-1.47); MONOCYTES PERCENT AUTO 6 % (4-13); Mean Corpuscular HGB 29.7 pg (26.0-34.0); Mean Corpuscular HGB Conc 31.9 g/dL (31.5-36.5); Mean Corpuscular Volume 93 fL (80-100); NEUTROPHILS ABSOLUTE AUTO 16.01 K/mm3 (1.96-9.15); NEUTROPHILS PERCENT AUTO 89 % (41-73); Platelet Count 222 K/mm3 (150-400); RDW Coefficient Variation 12.9 % (11.7-14.2); RDW Standard Deviation 44.3 fL (35.1-46.3); Red Blood Cell Count 4.65 M/mm3 (4.30-5.90)
[2024-08-05 04:10] LABS: Bun/Creatinine Ratio 52.5 (12.0-20.0); Calcium, Blood 8.8 mg/dL (8.5-10.1); Creatinine, Blood 1.18 mg/dL (0.60-1.20)
--- NOTE | 2024-08-05 06:33 | NUR ---
ASSUMED CARE AT 0400, PT TRANSFERRED FROM ICU BY BED. PT ON 4L O2 BY NC, AOX4, SPEAKING IN FULL SENTENCES. NO C/O CHEST PAIN OR DYSPNEA. PT ORIENTED TO ROOM AND CALL LIGHT. PT IS ABLE TO MAKE NEEDS KNOWN. PT AFIB ON MONITOR, WHICH IS CHRONIC FOR HIM. LUNGS CLEAR IN UPPER CARPENTER B/L, RLL IS DIMINISHED AND HAS EXPIRATORY WHEEZE, LLL IS DIMINISHED. BOWEL TONES ACTIVE IN ALL QUADRANTS. NO EDEMA NOTED TO EXTREMITIES. 20G IV IN LEFT FOREARM IS FLUSHED AND SALINE LOCKED AT THIS TIME. SKIN INTACT. PT IN DROPLET ISOLATION PRECAUTIONS D/T RSV. PT HAS BEEN ABLE TO URINATE S/P DIEGO D/C.
[2024-08-05] MEDS ORDERED: Lisinopril 20 MG Tab PO SCH (09:00)
[2024-08-05] MEDS ORDERED: PredniSONE 20 MG Tab PO SCH (09:25)
--- NOTE | 2024-08-05 10:17 | NUR ---
Pt assisted up to chair for bed change, medication administration. Heart rate from 119 at rest to 145 with activity. Pt states his breathing continues to feel labored with activity. He tolerated the activity fairly well on 4 l/min of O2. Pt states that his basline O2 is 1 l/min. Lungs are diminished in bases, left more than the right, with faint wheezing and fine crackles noted throughout. He has an occasional dry cough. Incentive spirometer and flutter valve given and pt educated on their use. Orthostatic b/p done and results as follows: lyin/67 (87) afib at 110 bpm sittin/72 (81) afib at 114 bpm standin/87 (97) afib at 130 bpm
--- NOTE | 2024-08-05 11:20 | NUR ---
Assisted pt back to bed at this time. He appeared to be quite fatigued; fell asleep readily.
[2024-08-05] MEDS ORDERED: Insulin Human Lispro 100 Units/ML 3ML Syringe SC SCH (11:30)
--- NOTE | 2024-08-05 16:51 | NUR ---
Pt awake from nap, sitting in chair talking to friend and then making phone call to talk with his . Vital signs are stable, on 3 l/min of O2. Heart rate continues to be 125 bpm without symptoms, afib, with the activity.
--- NOTE | 2024-08-05 17:30 | NUR ---
UP TO BSC WITH GAIT BELT AND ROMA, 1 STAFF MEMBER ASSIST. SITTING UP IN CHAIR TO EAT DINNER NOW.
--- NOTE | 2024-08-05 17:58 | NUR ---
ASSISTED BACK TO BED AFTER FINISHING HIS DINNER. Bipap in room; pt states that he only wears oxygen at home while sleeping. pt on 3 l/min O2 spo2 93%. Heart rate 115, afib. Mild dyspnea with activity, resolved quickly after lying down. HOB 5% per pt request.
[2024-08-06] VITALS (8 sets, daily range): BP systolic 101–147; BP diastolic 68–111
[2024-08-06 04:14] LABS: BASOPHILS PERCENT AUTO 0 % (0-2); EOSINOPHILS ABSOLUTE AUTO 0.01 K/mm3 (0.00-0.68); EOSINOPHILS PERCENT AUTO 0 % (0-6); Hematocrit 44.3 % (37.0-53.0); Hemoglobin 14.7 g/dL (13.5-17.5); IMMATURE GRAN PERCENT AUTO 2 % (0-1); LYMPHOCYTES ABSOLUTE AUTO 0.92 K/mm3 (0.84-5.20); LYMPHOCYTES PERCENT AUTO 4 % (21-46); MONOCYTES ABSOLUTE AUTO 2.39 K/mm3 (0.16-1.47); MONOCYTES PERCENT AUTO 9 % (4-13); Mean Corpuscular HGB 30.9 pg (26.0-34.0); Mean Corpuscular HGB Conc 33.2 g/dL (31.5-36.5); Mean Corpuscular Volume 93 fL (80-100); NEUTROPHILS ABSOLUTE AUTO 22.34 K/mm3 (1.96-9.15); NEUTROPHILS PERCENT AUTO 85 % (41-73); Platelet Count 220 K/mm3 (150-400); RDW Coefficient Variation 12.5 % (11.7-14.2); RDW Standard Deviation 43.6 fL (35.1-46.3); Red Blood Cell Count 4.75 M/mm3 (4.30-5.90); White Blood Cell Count 26.36 K/mm3 (4.00-11.30)
[2024-08-06 04:37] LABS: Albumin, Blood 2.5 g/dL (3.4-5.0); Albumin/Globulin Ratio 0.8 (0.8-1.8); Bilirubin, Total 0.8 mg/dL (0.1-1.0); Bun/Creatinine Ratio 53.9 (12.0-20.0); Calcium, Blood 8.8 mg/dL (8.5-10.1); Creatinine, Blood 1.02 mg/dL (0.60-1.20); Globulin, Blood 3.1 g/dL (2.2-4.0); Potassium, Blood 4.5 mmol/L (3.5-5.5); Total Protein, Blood 5.6 g/dL (6.4-8.2)
--- NOTE | 2024-08-06 04:43 | NUR ---
SHIFT SUMMARY PT A&OX4. FOLLOWS COMMANDS AND ANSWERS QUESTIONS APPROPRIATELY. PT BECAME RESTLESS IN THE MIDDLE OF THE NIGHT AND REQUESTED SOMETHING TO HELP HIM SLEEP, PRN ATIVAN GIVEN WITH GOOD EFFECT. PT REMAINS ON TELE IN AFIB 90s-140. PT ON 2L NC >92%. STATES HE IS NOT SOB. BPs STABLE. PT ABLE TO GET UP TO BSC WITH GAITBELT. HAD ONE BM IN THE NIGHT. CBGs REMAIN WNL. NO FURTHER QUESTIONS OR CONCERNS AT THIS TIME. WILL CONTINUE WITH PLAN OF CARE. BED ALARM REMAINS SET WITH CALL [place] WITHIN REACH.
--- NOTE | 2024-08-06 08:30 | NUR ---
Pt is alert, but states very tired this morning. CHILD [facility] said he was not easy to arouse this morning. Per noc shift report he got 1 mg ativan at 0100 for anxiety to help him sleep, and was immediately affected by it. He is sitting up in bed, eating breakfast but appears to be mildly dyspneic and tachycardic with the activity.
--- NOTE | 2024-08-06 09:09 | NUR ---
Pt is very fatigued. he ate a little bit of breakfast, but mostly only what is liquid. His heart rate is 128-155 bpm, blood pressure 114 systolic to 98 systolic..
--- NOTE | 2024-08-06 09:54 | NUR ---
Spoke with dr Street about pt's condition, elevated heart rate during rounds.
[2024-08-06] MEDS ORDERED: Metoprolol Tartrate 25 MG Tab PO ONE (11:00)
--- NOTE | 2024-08-06 11:43 | NUR ---
Pt is still very tired. Able to sit on side of bed to urinate and take p.o. metoprolol, additional 25 mg ordered. Assisted up to recliner to sit and rest a bit before lunch.
--- NOTE | 2024-08-06 11:53 | NUR ---
[facility] RN here to assess pt for appropriateness for return to the facility for discharge.
--- NOTE | 2024-08-06 15:50 | NUR ---
THIS RN TO ASSUME CARE AT APPROX 1400
[2024-08-06] MEDS ORDERED: Metoprolol Tartrate 50 MG Tab PO SCH (21:00)
[2024-08-07] MEDS ORDERED: Melatonin 3 MG Tab PO PRN (01:25)
[2024-08-07 04:05] LABS: Hematocrit 41.2 % (37.0-53.0); Hemoglobin 13.5 g/dL (13.5-17.5); Mean Corpuscular HGB Conc 32.8 g/dL (31.5-36.5); Mean Corpuscular Volume 92 fL (80-100); Platelet Count 211 K/mm3 (150-400); RDW Coefficient Variation 12.4 % (11.7-14.2); RDW Standard Deviation 41.5 fL (35.1-46.3); White Blood Cell Count 21.39 K/mm3 (4.00-11.30)
--- NOTE | 2024-08-07 06:34 | NUR ---
SHIFT SUMMARY PT ALERT AND ORIENTED X4, BP STABLE, ON TELE AFIB 90S, SPO2 >95% ON 3L NC, BUT DESATS WITH ACTIVITY, STAND BY ASSIST WITH FWW AND GAIT BELT TO BEDSIDE COMMODE, USING URINAL INDEPENDENTLY, NO OTHER CHANGES. WILL REPORT TO ONCOMING RN.
[2024-08-07 08:10] VITALS: BP 125/98
[2024-08-07 11:26] VITALS: BP 122/77
[2024-08-07 17:04] VITALS: BP 132/94
--- NOTE | 2024-08-07 18:58 | NUR ---
PT A&Ox4 ON 2LNC AND SHOULD BE ABLE TO TITRATE DOWN. THE DR PUT HIM ON RA AND HE DID GREAT UNTIL HE TOOK A NAP AND THAT IS WHEN HE NEEDED TO BE PUT BACK ON O2. HE IS x1 ASSIST W/WALKER AND [place] [facility] [place]. HE IS ON A SOFT DIET.
[2024-08-07 20:08] VITALS: BP 143/103
[2024-08-07 23:25] VITALS: BP 126/87
[2024-08-08] MEDS ORDERED: TraZODone HCl 50 MG Tab PO ONE (00:30)
[2024-08-08 04:45] VITALS: BP 119/71
--- NOTE | 2024-08-08 06:11 | NUR ---
SHIFT SUMMARY PT A/OX4, DENIES PAIN, VERBALIZES NEEDS, OBEYS COMMANDS. ON 2L NC, SATS ABOVE 90% WITH INCREASED WORK OF BREATHING. INTERMITTENT COUGH. AFIB, HR 70 S, PT DENIES CHEST PAIN/PRESSURE. USES CALL LIGHT APPROPRIATELY AND CALLS FOR ASSISTANCE TO BEDSIDE COMMODE. USING GAIT BELT AND FWW WITH 1P ASSIST. PT REPORTED TROUBLE SLEEPING, MELATONIN WAS NOT HELPING, SEE NEW ORDERS FOR TRAZADONE. PT ABLE TO SLEEP FOR A FEW HOURS. NO ACUTE EVENTS THIS SHIFT.
[2024-08-08 08:01] VITALS: BP 118/74
[2024-08-08] MEDS ORDERED: Guaifenesin/Dextromethorphan Syrup 5 ML UDC PO PRN (08:25)
[2024-08-08] MEDS ORDERED: GuaiFENesin 600 MG TabCR PO SCH (09:00)
[2024-08-08] MEDS ORDERED: Amoxicillin/Clavulanate K 875 MG Tab PO SCH (09:00)
[2024-08-08 12:20] VITALS: BP 92/73
[2024-08-08 13:05] VITALS: BP 95/82
[2024-08-08 15:25] VITALS: BP 100/70
--- NOTE | 2024-08-08 17:20 | NUR ---
PT A&Ox4 ON RA UNLESS HE IS TALKING OR EATING, THEN HE IS ON 2LNC. HE IS x1 ASSIST W/WALKER TO BSC OR RECLINER. PT USES URINAL INDEPENDENTLY. HE'S ON A REGULAR, BITE SIZED DIET. HE HAS HAD A COUPLE OF LOWER BP'S TODAY, BUT HAS BEEN ASYPMTOMATIC.
[2024-08-08 19:51] VITALS: BP 112/94
[2024-08-08] MEDS ORDERED: TraZODone HCl 50 MG Tab PO PRN (20:55)
[2024-08-09 04:20] LABS: Hematocrit 36.9 % (37.0-53.0); Hemoglobin 12.5 g/dL (13.5-17.5); Mean Corpuscular HGB 30.4 pg (26.0-34.0); Mean Corpuscular HGB Conc 33.9 g/dL (31.5-36.5); Mean Corpuscular Volume 90 fL (80-100); Mean Platelet Volume 10.1 fL (9.1-12.4); Platelet Count 207 K/mm3 (150-400); RDW Coefficient Variation 12.5 % (11.7-14.2); RDW Standard Deviation 41.1 fL (35.1-46.3); Red Blood Cell Count 4.11 M/mm3 (4.30-5.90); White Blood Cell Count 21.68 K/mm3 (4.00-11.30)
[2024-08-09 04:44] VITALS: BP 93/63
[2024-08-09 04:48] LABS: Bun/Creatinine Ratio 40.2 (12.0-20.0); Calcium, Blood 8.7 mg/dL (8.5-10.1); Creatinine, Blood 1.02 mg/dL (0.60-1.20); Potassium, Blood 4.1 mmol/L (3.5-5.5)
--- NOTE | 2024-08-09 05:05 | NUR ---
SHIFT SUMMARY PT A/OX4, USES CALL LIGHT APPROPRIATELY, FOLLOWS COMMANDS, DENIES PAIN AT THIS TIME. BPS SOFT IN THE 100'S, PT DENIES CHEST PAIN/PRESSURE. PT AMBULATING TO AND FROM BEDSIDE COMMODE WITH FWW, GAIT BELT, AND SBA. PT REMAINED ON 2L O2 VIA NASAL CANULA T/O NIGHT. REQUESTED SLEEP AID AND MUCH UNDISTURBED TIME POSSIBLE TO REST THIS EVENING. WILL CONTINUE TO MONITOR AND GIVE REPORT TO ONCOMING RN.
[2024-08-09 07:40] VITALS: BP 95/64
[2024-08-09 07:47] VITALS: BP 102/74
[2024-08-09] MEDS ORDERED: Cefepime HCl 2,000 MG in NS 100 ML IV SCH (08:04)
[2024-08-09] MEDS ORDERED: Vancomycin HCL 2,000 MG in NS 500 ML IV ONE (08:10)
[2024-08-09] MEDS ORDERED: Ipratropium/Albuterol SulF 2.5-0.5MG/3 ML Amp INH SCH (08:55)
[2024-08-09] MEDS ORDERED: Lisinopril 5 MG Tab PO SCH (09:00)
[2024-08-09 11:21] VITALS: BP 121/78
--- NOTE | 2024-08-09 11:45 | NUR ---
THIS RN TRIALED THE PT ON RA WHILE GIVING HIM A BEDBATH. HIS SP02 DROPPED TO 84% ON RA. CONTINUES TO C/O TROUBLE CATCHING A BREATH. WORSENING WITH ACTIVITY. PT WAS PLACED BACK 2L NC W/ SP02 >93%. RT IN THE ROOM TO GIVE THE PT A BREATHING TREATMENT. SEE NOTES FOR UPDATES .
[2024-08-09 15:32] VITALS: BP 115/83
[2024-08-09] MEDS ORDERED: TIOT18 INH (16:08)
[2024-08-09] MEDS ORDERED: WIXELA 500-501 EAC1 INH (16:10)
--- NOTE | 2024-08-09 18:27 | NUR ---
END OF SHIFT REPORT PT IS A&OX4, GCS15, MOTOR FUNCTION INTACT. PT RESPONDS TO COMMANDS APPROPRIATELY. PT IS IN AFIB WITH A RATE OF 80'S TO 90'S. BLOOD PRESSURES ARE SOFT BUT STABLE. PT O2 MAINTAINED AT >93% W/ 2L O2 VIA NC. AT BASE LINE PT IS RA AND 1L O2 AT NOC. AT THE START OF SHIFT EXPIRATORY WHEEZE HEARD ON AUSCULTATION NOW BREATH SOUNDS ARE DIMINISHED THROUGHOUT. PT HAS A CROUPY/WET/NONPRODUCTIVE COUGH. PT HAS INCENTIVE SPIROMETER AND FLUTTER VALVE AT BEDSIDE WITH A GOAL SET TO USE THE DEVICES 3 TO 5 TIMES EVERY 30 MINUES. PT IS A 1P SBA WITH GAIT BELT AND FWW. FAMILY CAME TO VISIT, SPOKE WITH ON THE PHONE AND UPDATED HER ON PT STATUS. BED IS IN LOWEST POSITION, CALL LIGHT IN REACH. SEE NOTES FOR ANY UPDATES.
--- NOTE | 2024-08-09 19:27 | NUR ---
ASSUMPTION OF CARE PT IN BED WITH EYES CLOSED,OPENS EYES TO VERBAL STIMULI.BEDSIDE REPORT COMPLETED.PT DENIES PAIN/DISCOMFORT.BLANKETS ADJUSTED PER PT'S REQUEST.CALL LIGHT AND PT'S ITEMS WITHIN REACH,BED TO THE LOWEST POSITION.PATIENT'S CONDITION REMAINS STABLE AT THIS TIME,CONTINUING WITH THE PRESCRIBED PLAN OF CARE.
[2024-08-09 20:17] VITALS: BP 121/82
[2024-08-09] MEDS ORDERED: Vancomycin HCL 1,250 MG in NS 250 ML IV SCH (21:00)
[2024-08-10 00:14] VITALS: BP 105/68
[2024-08-10 04:17] VITALS: BP 113/77
--- NOTE | 2024-08-10 06:19 | NUR ---
PT WAS AWAKE MOST OF THE NIGHT.PT ENCOURAGED TO USE THE FLUTTER VALVE AND THE INCENTIVE SPIROMETER.REINFORCED THE TEACHING ON THE NEED TO USE THEM.PT VERBALIZED UNDERSTANDING.PRN TRAZADONE GIVEN FOR SLEEP.PT WAS ABLE TO FALL ASLEEP AFTER TAKING THE MED.PT STILL SLEEPING,EASILY AROUSABLE.DENIES PAIN,DENIES NEEDS.CALL LIGHT AND PT'S ITEMS WITHIN REACH,BED IN THE LOWEST POSITION.SAFETY MEASURES IN PLACE.
[2024-08-10 07:56] VITALS: BP 109/70
[2024-08-10 08:12] LABS: Hematocrit 39.4 % (37.0-53.0); Hemoglobin 13.1 g/dL (13.5-17.5); Mean Corpuscular HGB 30.5 pg (26.0-34.0); Mean Corpuscular HGB Conc 33.2 g/dL (31.5-36.5); Mean Corpuscular Volume 92 fL (80-100); Mean Platelet Volume 9.9 fL (9.1-12.4); Platelet Count 224 K/mm3 (150-400); RDW Coefficient Variation 12.5 % (11.7-14.2); RDW Standard Deviation 41.9 fL (35.1-46.3); Red Blood Cell Count 4.29 M/mm3 (4.30-5.90); White Blood Cell Count 22.95 K/mm3 (4.00-11.30)
[2024-08-10] MEDS ORDERED: PredniSONE 20 MG Tab PO SCH (09:00)
[2024-08-10] MEDS ORDERED: Vancomycin HCL 1,000 MG in NS 250 ML IV SCH (09:00)
[2024-08-10 12:03] VITALS: BP 105/73
[2024-08-10 16:16] VITALS: BP 96/62
--- NOTE | 2024-08-10 17:52 | NUR ---
SHIFT SUMMARY: ON DROPLET PRECATIONS FOR RSV DX A/O X4, PLEASANT AND COOPERATIVE WITH CARE, USES CALL LIGHT APPROPRIATELY. SOFT BUT STABLE BP, LFA IV, HX OF: CAD, HTN, AFIB, COPD, DM. ON 2L O2 VIA NC, PT REPORTS BASELINE IS 0 O2 DURING THE DAY WITH 1L AT NIGHT VIA NC, PREVIOUS INTUBATION W/EXTUBATION ON 08/02, FLUTTER VALVE AND IS AT BEDSIDE, PT REPORTS NONPRODUCTIVE COUGH, TACHYPNEIC ON EXERTION. AMBULATS TO THE BATHROOM A 1P SBA WITH A GAIT BELT AND FWW, HX BPH. PLAN TO D/C TO SNF PENDING INSURANCE APPROVAL 08/11 (?). CALLED IN REPORT TO MED FLOOR RN AT 1747, LEFT THE UNIT IN WHEELCHAIR AT 1800 WITHOUT INCIDENT.
--- NOTE | 2024-08-10 18:51 | NUR ---
PT TRANSFERED FROM PCU 18 TO ROOM 360 AROUND 1805. PT NOTED TO BE A&O X4 AND ASSIST X1 WITH FWW AND GAITBELT TO BSC. PT HAS URINAL AT BEDSIDE. PT NOTED TO CALL APPROPRIATE AND ABLE TO COMMUNICATE NEEDS. PT NOTED TO BE ON 2L/NC. PT NOTED TO HAVE BRUISES SCATTERED T/O. PT HAS AN IS AND FLUTTER AT BEDSIDE AND DIMISTRATED KNOWELEDGE ON HOW TO USE THEM. PLAN IS FOR PT TO DC TO SNF AWAITING INSURANCE APPROVAL.
[2024-08-10 20:23] VITALS: BP 125/83
[2024-08-10 20:46] LABS: Creatinine, Blood 1.19 mg/dL (0.60-1.20); Vancomycin, Trough 19.3 ug/mL (5.0-10.0)
[2024-08-10] MEDS ORDERED: NS 250 ML IV PRN (21:15)
[2024-08-11 02:41] VITALS: BP 104/70
--- NOTE | 2024-08-11 06:01 | NUR ---
Shift Summary No acute changes. Pt still on 2L NC. AOx4, uses urinal at the bedside, slept t/o most of the night. Pt has a coarse sounding cough and bases of lungs sound coarse. He continues to use flutter valve at the bedside.
[2024-08-11 07:12] VITALS: BP 123/95
[2024-08-11 08:18] LABS: Mean Corpuscular HGB 30.7 pg (26.0-34.0); Mean Corpuscular HGB Conc 33.3 g/dL (31.5-36.5); Mean Corpuscular Volume 92 fL (80-100); Mean Platelet Volume 9.8 fL (9.1-12.4); Platelet Count 236 K/mm3 (150-400); RDW Coefficient Variation 12.5 % (11.7-14.2); RDW Standard Deviation 42.1 fL (35.1-46.3); Red Blood Cell Count 4.24 M/mm3 (4.30-5.90); White Blood Cell Count 26.93 K/mm3 (4.00-11.30)
[2024-08-11] MEDS ORDERED: DEXTROMETHORPHAN/BENZOCAINE 1 EACH LOZENGE MT PRN (08:50)
[2024-08-11 16:00] VITALS: BP 130/91
--- NOTE | 2024-08-11 17:55 | NUR ---
SHIFT SUMMARY A&O X4. REMAINS ON 2L O2 VON NASAL CANNULA. CONTINUES ON IV ABX. BG, 101,120, & 171. CHEST CT PERFORMED TODAY. BREATH SOUNDS CONTINUE TO SOUND COURSE BILAT LOWER LOBES. NEW ORDER FOR CEPACOL LOZENGES. BED IN LOW POSITION. CALL LIGHT WITHIN REACH
[2024-08-11 20:17] VITALS: BP 130/79
[2024-08-11 21:15] LABS: Vancomycin, Trough 20.3 ug/mL (5.0-10.0)
[2024-08-12 04:52] LABS: Hematocrit 33.9 % (37.0-53.0); Hemoglobin 11.3 g/dL (13.5-17.5); Mean Corpuscular HGB 30.6 pg (26.0-34.0); Mean Corpuscular HGB Conc 33.3 g/dL (31.5-36.5); Mean Corpuscular Volume 92 fL (80-100); Mean Platelet Volume 9.8 fL (9.1-12.4); Platelet Count 194 K/mm3 (150-400); RDW Coefficient Variation 12.5 % (11.7-14.2); RDW Standard Deviation 42.3 fL (35.1-46.3); Red Blood Cell Count 3.69 M/mm3 (4.30-5.90); White Blood Cell Count 20.82 K/mm3 (4.00-11.30)
[2024-08-12 05:07] LABS: Bun/Creatinine Ratio 25.4 (12.0-20.0); Calcium, Blood 8.6 mg/dL (8.5-10.1); Creatinine, Blood 1.18 mg/dL (0.60-1.20); Potassium, Blood 4.4 mmol/L (3.5-5.5)
[2024-08-12 05:56] VITALS: BP 121/77
--- NOTE | 2024-08-12 06:18 | NUR ---
Shift Summary No acute changes. Pt on 2L NC, AOx4, lung sounds coarse bilaterally. Pt c/o throat soreness and cough which are both managed well by throat losenges. Rcving IV ABX as ordered.
[2024-08-12 07:21] VITALS: BP 139/90
[2024-08-12] MEDS ORDERED: Cefepime HCl 2,000 MG in NS 100 ML IV SCH (10:00)
[2024-08-12 15:40] VITALS: BP 125/81
--- NOTE | 2024-08-12 18:09 | NUR ---
SHIFT SUMMARY A&O X4. OXYGEN AT 2L VIA NASAL CANNULA. REMAINS ON IV ABX. RT PERFORMED BREATHING TREATMENTS. SEEN BY PT. PLAN TO DISCHARGE TOSNIF, POSSIBLY TOMORROW. NO INSULIN COVERAGE NEEDED THIS SHIFT. BED IN LOW POSITION AND CALL LIGHT WITHIN REACH
[2024-08-12 20:07] VITALS: BP 123/74
[2024-08-13 04:39] VITALS: BP 99/67
--- NOTE | 2024-08-13 05:56 | NUR ---
SHIFT SUMMARY PT SLEPT INTERMITTENLTY DURING THE NIGHT. CONTINUES ON 02 AT 2LNC WITH SATS WNL. PT HAS SOME SOB WITH ACTIVITY. IV ANTIBIOTICS CONTINUE PER ORDER. OOB WITH SBA AND FWW. BED IN LOWEST POSITION, CALL LIGHT WITHIN REACH, SIDERAILS UP X2.
[2024-08-13 07:46] VITALS: BP 118/83
[2024-08-13 08:38] LABS: Hematocrit 36.4 % (37.0-53.0); Hemoglobin 12.1 g/dL (13.5-17.5); Mean Corpuscular HGB 30.5 pg (26.0-34.0); Mean Corpuscular HGB Conc 33.2 g/dL (31.5-36.5); Mean Corpuscular Volume 92 fL (80-100); Mean Platelet Volume 9.8 fL (9.1-12.4); Platelet Count 194 K/mm3 (150-400); RDW Coefficient Variation 12.6 % (11.7-14.2); RDW Standard Deviation 42.4 fL (35.1-46.3); Red Blood Cell Count 3.97 M/mm3 (4.30-5.90); White Blood Cell Count 17.66 K/mm3 (4.00-11.30)
[2024-08-13 09:03] LABS: Vancomycin, Trough 23.9 ug/mL (5.0-10.0)
[2024-08-13] MEDS ORDERED: GUAI600T33 PO (10:19)
[2024-08-13] MEDS ORDERED: IPRAT-ALBUT 0.5-3 ML INH (10:20)
[2024-08-13] MEDS ORDERED: MELA3 PO (10:21)
[2024-08-13] MEDS ORDERED: TRAZ50 PO (10:22)
[2024-08-13] MEDS ORDERED: Q-Tussin100 MG/5 M PO (10:25)
--- NOTE | 2024-08-13 14:22 | NUR ---
SHIFT SUMMARY A&O X4. O2 @ 2L VIA NASAL CANNULA. CANTACT PRECAUTIONS LIFTED. BREATHS SOUND ARE IMPROVED, BUT STILL COURSE TO LOWER LOBES BILAT. REPORT CALLED TO ASIF AT [facility]. CLIENT LEFT UNIT VIA WHEELCHAIR ESCORTED BY TRANSPORTATION
[2024-08-13] MEDS ORDERED: Vancomycin HCL 1,500 MG in NS 250 ML IV SCH (21:00)
== END 2024-08-13 14:14 | DRG 208 ==
LOC: ER 15:34 → PCU 20:56 → ICUE 20:56 → ERHOLD 20:56 → PCU 22:00 → ICUE 07-29 05:15 → PCU 08-05 03:52 → MEDS 08-10 18:04
PROVIDERS: Emergency Medicine; Family Medicine; Hospitalist; Internal Medicine; Internal Medicine Critical Care Medicine; Nurse Practitioner Acute Care; ADMIT Internal Medicine
PROC: 5A09557 Assistance with Respiratory Ventilation, Greater than 96 Consecutive Hours, Continuous Positive Airway Pressure (ICD-10-PCS; 2024-07-28)
PROC: 5A1945Z Respiratory Ventilation, 24-96 Consecutive Hours (ICD-10-PCS; principal; 2024-07-29)
PROC: 0BH17EZ Insertion of Endotracheal Airway into Trachea, Via Natural or Artificial Opening (ICD-10-PCS; 2024-07-29)
PROC: 02HV33Z Insertion of Infusion Device into Superior Vena Cava, Percutaneous Approach (ICD-10-PCS; 2024-07-29)
PROC: B548ZZA Ultrasonography of Superior Vena Cava, Guidance (ICD-10-PCS; 2024-07-29)
PROC: 3E043XZ Introduction of Vasopressor into Central Vein, Percutaneous Approach (ICD-10-PCS; 2024-07-29)
PROC: 4A033R1 Measurement of Arterial Saturation, Peripheral, Percutaneous Approach (ICD-10-PCS; 2024-07-29)
PROC: 3E033XZ Introduction of Vasopressor into Peripheral Vein, Percutaneous Approach (ICD-10-PCS; 2024-07-29)
PROC: 0DH67UZ Insertion of Feeding Device into Stomach, Via Natural or Artificial Opening (ICD-10-PCS; 2024-07-30)
PROC: 3E0G76Z Introduction of Nutritional Substance into Upper GI, Via Natural or Artificial Opening (ICD-10-PCS; 2024-07-30)
PROC: 3E03329 Introduction of Other Anti-infective into Peripheral Vein, Percutaneous Approach (ICD-10-PCS; 2024-07-30)
PROC: 0T9B70Z Drainage of Bladder with Drainage Device, Via Natural or Artificial Opening (ICD-10-PCS; 2024-07-31)
DX: J44.1 Chronic obstructive pulmonary disease with (acute) exacerbation (principal); J96.21 Acute and chronic respiratory failure with hypoxia; A41.59 Other Gram-negative sepsis; E43 Unspecified severe protein-calorie malnutrition; Z66 Do not resuscitate; J96.22 Acute and chronic respiratory failure with hypercapnia; I48.20 Chronic atrial fibrillation, unspecified; I50.22 Chronic systolic (congestive) heart failure; Z51.5 Encounter for palliative care; N17.9 Acute kidney failure, unspecified; Z99.11 Dependence on respirator [ventilator] status; E87.29 Other acidosis; B97.4 Respiratory syncytial virus as the cause of diseases classified elsewhere; K04.7 Periapical abscess without sinus; I11.0 Hypertensive heart disease with heart failure; B96.1 Klebsiella pneumoniae [K. pneumoniae] as the cause of diseases classified elsewhere; I25.10 Atherosclerotic heart disease of native coronary artery without angina pectoris; E11.9 Type 2 diabetes mellitus without complications; E78.5 Hyperlipidemia, unspecified; N40.0 Benign prostatic hyperplasia without lower urinary tract symptoms; K21.9 Gastro-esophageal reflux disease without esophagitis; Z79.01 Long term (current) use of anticoagulants; Z99.81 Dependence on supplemental oxygen; I25.2 Old myocardial infarction
CPT/HCPCS: 0241U; 31500; 31720; 36415; 36556; 36600; 51702; 71045; 71046; 71260; 80048; 80053; 80202; 81001; 82330; 82565; 82570; 82803; 82947; 83735; 83880; 84100; 84300; 84443; 84484; 85025; 85027; 87070; 87077; 87186; 87205; 92526; 92610; 93005; 93010; 94002; 94003; 94640; 94660; 94664; 94760; 94762; 96374; 97110; 97116; 97162; 97165; 97530; 97535; 99285-25; A9270; C1751; C8929; J0456; J0692; J0696; J1815; J1940; J2060; J2371; J2405; J2470; J2543; J2704; J2919; J3010; J3370; J7040; J7050; J7060; J7120; J7512; Q9957; Q9967

== ENCOUNTER 2024-11-04 09:10 | Emergency (ER) | payer OTHER ==
[~2024-11-04] VITALS: Ht 180.3 cm; Wt 79.4 kg
[~2024-11-04 09:10] MED LIST changes: +AMIODARONE HCL100 M3 PO; +ELIQUIS2.5 MG PO; +FURO40 PO; +GUAI600T33 PO; +IPRAT-ALBUT 0.5-3 ML INH; +JARDIANCE10 MG PO; -Ketamine HCl 100 MG / ML 5ML Vial IV ONE; +MELA3 PO; +METO50 PO; +POTCHL20ER PO; -Phenylephrine HCl 100 MCG/ML-NS 10MLSYR (1MG/10ML) IV ONE; +Q-Tussin100 MG/5 M PO; -Rocuronium Bromide 10 MG/ML 5ML Injection IV ONE; +SPIR25 PO; +TIOT18 INH; +TRAZ50 PO; +WIXELA 500-501 EAC1 INH
[2024-11-04 09:39] LABS: BASOPHILS ABSOLUTE AUTO 0.06 K/mm3 (0.00-0.23); BASOPHILS PERCENT AUTO 1 % (0-2); EOSINOPHILS ABSOLUTE AUTO 0.40 K/mm3 (0.00-0.68); EOSINOPHILS PERCENT AUTO 4 % (0-6); Hematocrit 37.6 % (37.0-53.0); Hemoglobin 12.4 g/dL (13.5-17.5); IMMATURE GRAN ABSOLUTE AUTO 0.04 K/mm3 (0.00-0.10); IMMATURE GRAN PERCENT AUTO 0 % (0-1); LYMPHOCYTES ABSOLUTE AUTO 0.85 K/mm3 (0.84-5.20); LYMPHOCYTES PERCENT AUTO 9 % (21-46); MONOCYTES ABSOLUTE AUTO 1.00 K/mm3 (0.16-1.47); MONOCYTES PERCENT AUTO 10 % (4-13); Mean Corpuscular HGB Conc 33.0 g/dL (31.5-36.5); Mean Corpuscular Volume 94 fL (80-100); NEUTROPHILS ABSOLUTE AUTO 7.35 K/mm3 (1.96-9.15); NEUTROPHILS PERCENT AUTO 76 % (41-73); NRBC ABSOLUTE 0.00 K/mm3 (0.00-0.02); NRBC Auto 0.0 /100 WBC (0.0-0.2); Platelet Count 248 K/mm3 (150-400); RDW Coefficient Variation 13.7 % (11.7-14.2); RDW Standard Deviation 46.7 fL (35.1-46.3)
[2024-11-04 10:01] LABS: Alanine Aminotransfer (ALT/SGP 26.0 U/L (12-78); Albumin, Blood 3.0 g/dL (3.4-5.0); Albumin/Globulin Ratio 0.8 (0.8-1.8); Anion Gap 6.0 mmol/L (3-11); Aspartate Aminotrans (AST/SGOT 24.0 U/L (12-37); Bilirubin, Total 0.6 mg/dL (0.1-1.0); Blood Urea Nitrogen 16.0 mg/dL (8-24); CO2, Blood 29.0 mmol/L (21-32); Calcium, Blood 9.2 mg/dL (8.5-10.1); Chloride, Blood 110.0 mmol/L (98-108); Creatinine, Blood 1.13 mg/dL (0.60-1.20); Globulin, Blood 3.8 g/dL (2.2-4.0); Glucose, Blood 107.0 mg/dL (70-99); Potassium, Blood 3.9 mmol/L (3.5-5.5); Sodium, Blood 141.0 mmol/L (136-145); Total Protein, Blood 6.8 g/dL (6.4-8.2)
[2024-11-04 11:00] VITALS: BP 149/93
== END 2024-11-04 11:12 | disposition home or self-care (01) ==
LOC: ER 09:10
PROVIDERS: Student in an Organized Health Care Education/Training Program
DX: I10 Essential (primary) hypertension (principal); J44.9 Chronic obstructive pulmonary disease, unspecified; I48.91 Unspecified atrial fibrillation; N40.0 Benign prostatic hyperplasia without lower urinary tract symptoms; Z95.1 Presence of aortocoronary bypass graft; Z87.891 Personal history of nicotine dependence; Z79.01 Long term (current) use of anticoagulants; Z79.82 Long term (current) use of aspirin; Z79.84 Long term (current) use of oral hypoglycemic drugs; Z79.51 Long term (current) use of inhaled steroids; Z79.899 Other long term (current) drug therapy
CPT/HCPCS: 71045; 80053; 84484; 85025; 93005; 93010; 99284-25

== ENCOUNTER 2025-03-06 10:00 | Emergency (ER) | payer OTHER ==
[~2025-03-06] VITALS: Ht 182.9 cm; Wt 70.3 kg
[2025-03-06 11:03] LABS: BASOPHILS ABSOLUTE AUTO 0.04 K/mm3 (0.00-0.23); BASOPHILS PERCENT AUTO 1 % (0-2); EOSINOPHILS ABSOLUTE AUTO 0.23 K/mm3 (0.00-0.68); EOSINOPHILS PERCENT AUTO 3 % (0-6); Hematocrit 39.2 % (37.0-53.0); Hemoglobin 12.9 g/dL (13.5-17.5); IMMATURE GRAN ABSOLUTE AUTO 0.02 K/mm3 (0.00-0.10); IMMATURE GRAN PERCENT AUTO 0 % (0-1); LYMPHOCYTES ABSOLUTE AUTO 0.96 K/mm3 (0.84-5.20); LYMPHOCYTES PERCENT AUTO 13 % (21-46); MONOCYTES ABSOLUTE AUTO 0.86 K/mm3 (0.16-1.47); MONOCYTES PERCENT AUTO 12 % (4-13); Mean Corpuscular HGB Conc 32.9 g/dL (31.5-36.5); Mean Corpuscular Volume 91 fL (80-100); NEUTROPHILS ABSOLUTE AUTO 5.36 K/mm3 (1.96-9.15); NEUTROPHILS PERCENT AUTO 72 % (41-73); NRBC ABSOLUTE 0.00 K/mm3 (0.00-0.02); NRBC Auto 0.0 /100 WBC (0.0-0.2); Platelet Count 181 K/mm3 (150-400); RDW Coefficient Variation 13.2 % (11.7-14.2); RDW Standard Deviation 44.2 fL (35.1-46.3)
[2025-03-06 11:20] LABS: Anion Gap 5.0 mmol/L (3-11); Blood Urea Nitrogen 17.0 mg/dL (8-24); CO2, Blood 33.0 mmol/L (21-32); Calcium, Blood 9.3 mg/dL (8.5-10.1); Chloride, Blood 108.0 mmol/L (98-108); Creatinine, Blood 1.07 mg/dL (0.60-1.20); Glucose, Blood 104.0 mg/dL (70-99); Potassium, Blood 3.8 mmol/L (3.5-5.5); Sodium, Blood 142.0 mmol/L (136-145)
[2025-03-06 12:17] LABS: Influenza A, PCR NEGATIVE (NEGATIVE); Influenza B, PCR NEGATIVE (NEGATIVE); Resp Syncytial Virus, PCR NEGATIVE (NEGATIVE); SARS-Cov-2 (COVID-19) PCR, MMC NEGATIVE (NEGATIVE)
[2025-03-06] MEDS ORDERED: K-TAB ER20 ME1 PO (14:21)
[2025-03-06] MEDS ORDERED: FURO20 PO (14:21)
[2025-03-06 14:45] VITALS: BP 153/101
== END 2025-03-06 15:01 | disposition home or self-care (01) ==
LOC: ER 10:00
PROVIDERS: Student in an Organized Health Care Education/Training Program
DX: I10 Essential (primary) hypertension (principal); J44.9 Chronic obstructive pulmonary disease, unspecified; I48.91 Unspecified atrial fibrillation; E78.5 Hyperlipidemia, unspecified; Z87.891 Personal history of nicotine dependence; Z76.0 Encounter for issue of repeat prescription; Z79.82 Long term (current) use of aspirin; Z79.899 Other long term (current) drug therapy
CPT/HCPCS: 71046; 80048; 83880; 84484; 85025; 87637; 93005; 93010; 99284-25; A9270